=== PATIENT | female | born 1960 | race Hispanic/Latino ===

== ENCOUNTER 2017-04-15 06:29 | Day surgery (SDC) | payer MEDICARE ==
[2017-04-11 11:00] VITALS: BP 104/61
[2017-04-11 11:32] LABS: BASOPHILS % (AUTO) 1.2 % (0.0-5.0); EOSINOPHILS % (AUTO) 2.7 % (0.0-8.0); HEMATOCRIT 37.1 % (36-48); LYMPHOCYTES % (AUTO) 18.8 % (21.0-51.0); MEAN CORPUSCULAR HEMOGLOBIN 28.8 pg (27.0-33.0); MEAN CORPUSCULAR HGB CONC 32.3 g/dL (32.0-36.0); MONOCYTES % (AUTO) 12.3 % (3.0-13.0); NUCLEATED RED BLOOD CELLS 0.1 % (0.0-0.19); PLATELET COUNT (AUTO) 152 K/uL (130-400); RED BLOOD CELL COUNT(AUTO) 4.17 MIL/uL (4.00-5.50); WHITE BLOOD COUNT (AUTO) 6.8 K/uL (4.8-10.8)
[2017-04-11 11:41] LABS: CREATININE 4.6 mg/dL (0.5-1.5); POTASSIUM 4.9 mmol/L (3.5-5.1)
[2017-04-11 12:24] LABS: INR 2.49 (0.85-1.15); PARTIAL THROMBOPLASTIN TIME 32.2 SEC (26.3-35.5); PROTHROMBIN TIME 25.7 SEC (9.6-11.6)
[2017-04-15] VITALS (14 sets, daily range): BP systolic 96–166; BP diastolic 40–96
[~2017-04-15] VITALS: Ht 152.4 cm; Wt 85.7 kg
[~2017-04-15 06:29] MED LIST: AMIO200T2 PO; ASPI-1181 PO; ATOR10TA69 PO; CARV12.511 PO; FOLI1TAB85 PO; GLIP10TA9 PO; LOSA100T29 PO; NITR0.4T50 SL; OMEG-96 PO; PANT40TA25 PO; WARF5TAB8 PO
[2017-04-15] MEDS ORDERED: MIDAZOLAM HCL 1 MG/ML 2ML VIAL ONE ×2 (07:38→08:59)
[2017-04-15] MEDS ORDERED: FENTANYL CITRATE PF 50 MCG/1 ML 2ML VIAL ONE ×2 (07:39→08:59)
[2017-04-15] MEDS ORDERED: SODIUM CHLORIDE 0.9% 1000ML 1,000 ML IV ONE (07:50)
[2017-04-15] MEDS ORDERED: ONDANSETRON HCL 4 MG/2 ML VIAL ONE (12:15)
[2017-08-07] MEDS ORDERED: LOSA50TA37 PO (11:06)
[2017-08-07] MEDS ORDERED: WARF2.5T9 PO (11:06)
[2017-08-07] MEDS ORDERED: CALC667C10 PO (11:07)
== END 2017-04-15 14:20 | disposition home or self-care (01) ==
LOC: DAH 06:29
PROVIDERS: ATTEND Internal Medicine Cardiovascular Disease
DX: I48.0 Paroxysmal atrial fibrillation (principal); I47.1 Supraventricular tachycardia; I25.2 Old myocardial infarction; I25.10 Atherosclerotic heart disease of native coronary artery without angina pectoris; Z79.01 Long term (current) use of anticoagulants; Z79.899 Other long term (current) drug therapy; Z95.5 Presence of coronary angioplasty implant and graft; N18.6 End stage renal disease; Z99.2 Dependence on renal dialysis; E11.69 Type 2 diabetes mellitus with other specified complication; E78.5 Hyperlipidemia, unspecified; Z98.890 Other specified postprocedural states; Z95.1 Presence of aortocoronary bypass graft; D64.89 Other specified anemias; I48.92 Unspecified atrial flutter; I13.11 Hypertensive heart and chronic kidney disease without heart failure, with stage 5 chronic kidney disease, or end stage renal disease; E11.319 Type 2 diabetes mellitus with unspecified diabetic retinopathy without macular edema; I51.7 Cardiomegaly
CPT/HCPCS: 36415; 80048; 82948 ×2; 85025; 85610; 85730; 92960; 93005 ×2; A4606; J2250 ×2; J3010 ×2; J7030; J2405

== ENCOUNTER 2017-08-08 05:59 | Day surgery (SDC) | payer MEDICARE ==
[2017-08-07 10:44] VITALS: BP 98/52
[2017-08-07 10:57] LABS: BASOPHILS % (AUTO) 0.9 % (0.0-5.0); EOSINOPHILS % (AUTO) 3.6 % (0.0-8.0); HEMATOCRIT 31.5 % (36-48); LYMPHOCYTES % (AUTO) 22.7 % (21.0-51.0); MEAN CORPUSCULAR HGB CONC 33.1 g/dL (32.0-36.0); MEAN CORPUSCULAR VOLUME 96.8 fL (79-99); NEUTROPHILS % (AUTO) 60.8 % (40.0-77.0); NUCLEATED RED BLOOD CELLS 0.1 % (0.0-0.19); PLATELET COUNT (AUTO) 147 K/uL (130-400); RED BLOOD CELL COUNT(AUTO) 3.26 MIL/uL (4.00-5.50); RED CELL DISTRIBUTION WIDTH 18.8 % (11.0-15.5); WHITE BLOOD COUNT (AUTO) 8.1 K/uL (4.8-10.8)
[2017-08-07 11:07] LABS: POTASSIUM 5.4 mmol/L (3.5-5.1)
[2017-08-07 11:15] LABS: CREATININE 8.3 mg/dL (0.5-1.5)
[2017-08-07 11:38] LABS: INR 1.47 (0.85-1.15); PARTIAL THROMBOPLASTIN TIME 29.4 SEC (26.3-35.5); PROTHROMBIN TIME 15.3 SEC (9.6-11.6)
[~2017-08-08] VITALS: Ht 156.2 cm; Wt 90.4 kg
[~2017-08-08 05:59] MED LIST changes: -AMIO200T2 PO; +CALC667C10 PO; -LOSA100T29 PO; +LOSA50TA37 PO; +WARF2.5T9 PO
[2017-08-08 06:30] VITALS: BP 114/42
[2017-08-08 06:46] LABS: POTASSIUM 4.6 mmol/L (3.5-5.1)
[2017-08-08] MEDS ORDERED: SODIUM CHLORIDE 0.9% 1000ML 1,000 ML IV ONE (07:59)
[2017-08-08 11:41] VITALS: BP 103/54
== END 2017-08-08 16:15 | disposition home or self-care (01) ==
LOC: DAH 05:59 → 2BH 11:57 → DAH 16:15
PROVIDERS: ATTEND Internal Medicine Cardiovascular Disease
DX: I48.92 Unspecified atrial flutter (principal); Z53.9 Procedure and treatment not carried out, unspecified reason; I47.1 Supraventricular tachycardia; Z68.35 Body mass index [BMI] 35.0-35.9, adult; I25.10 Atherosclerotic heart disease of native coronary artery without angina pectoris; Z79.01 Long term (current) use of anticoagulants; I21.3 ST elevation (STEMI) myocardial infarction of unspecified site; I25.5 Ischemic cardiomyopathy; E78.5 Hyperlipidemia, unspecified; I13.2 Hypertensive heart and chronic kidney disease with heart failure and with stage 5 chronic kidney disease, or end stage renal disease; E11.22 Type 2 diabetes mellitus with diabetic chronic kidney disease; N18.6 End stage renal disease; I50.9 Heart failure, unspecified; Z99.2 Dependence on renal dialysis
CPT/HCPCS: 36415 ×2; 80048 ×2; 82948; 85025; 85610; 85730; A4606; J7030

== ENCOUNTER 2017-08-21 05:30 | Observation (INO) | payer MEDICARE ==
[2017-08-19 09:22] VITALS: BP 103/65
[2017-08-19 09:34] LABS: BASOPHILS % (AUTO) 0.8 % (0.0-5.0); EOSINOPHILS % (AUTO) 3.1 % (0.0-8.0); LYMPHOCYTES % (AUTO) 19.3 % (21.0-51.0); MEAN CORPUSCULAR HEMOGLOBIN 31.8 pg (27.0-33.0); MEAN CORPUSCULAR HGB CONC 32.7 g/dL (32.0-36.0); MEAN CORPUSCULAR VOLUME 97.1 fL (79-99); MONOCYTES % (AUTO) 7.6 % (3.0-13.0); NEUTROPHILS % (AUTO) 69.2 % (40.0-77.0); NUCLEATED RED BLOOD CELLS 0.1 % (0.0-0.19); PLATELET COUNT (AUTO) 149 K/uL (130-400); RED CELL DISTRIBUTION WIDTH 16.6 % (11.0-15.5); WHITE BLOOD COUNT (AUTO) 7.6 K/uL (4.8-10.8)
[2017-08-19 09:45] LABS: INR 1.71 (0.85-1.15); PARTIAL THROMBOPLASTIN TIME 30.1 SEC (26.3-35.5); PROTHROMBIN TIME 17.8 SEC (9.6-11.6)
[2017-08-19 09:46] LABS: POTASSIUM 5.8 mmol/L (3.5-5.1)
[2017-08-19 10:01] LABS: CREATININE 8.4 mg/dL (0.5-1.5)
[~2017-08-21] VITALS: Ht 152.4 cm; Wt 89.1 kg
[2017-08-21] VITALS (33 sets, daily range): BP systolic 104–158; BP diastolic 43–65
[~2017-08-21 05:30] MED LIST changes: -LOSA50TA37 PO
[2017-08-21] MEDS ORDERED: SODIUM CHLORIDE 0.9% 1000ML 1,000 ML IV ONE (06:18)
[2017-08-21] MEDS ORDERED: HEPARIN SODIUM 1000UNIT/ML 10ML VIAL ONE ×2 (07:19→09:14)
[2017-08-21] MEDS ORDERED: PROPOFOL 10 MG/ML 20ML VIAL IV ONE (07:21)
[2017-08-21] MEDS ORDERED: LIDOCAINE HCL 2% 20ML ONE (08:22)
[2017-08-21] MEDS ORDERED: ROCURONIUM BROMIDE 10MG/1ML 5ML VL ONE (08:41)
[2017-08-21] MEDS ORDERED: NOREPINEPHRINE BITARTRATE 1 MG/1 ML ML IV ONE (11:15)
[2017-08-21] MEDS ORDERED: GLYCOPYRROLATE 0.2 MG/ML 5 ML VIAL ONE (11:23)
[2017-08-21] MEDS ORDERED: NEOSTIGMINE METHYLSULFATE 1MG/ML IV ONE (11:23)
[2017-08-21] MEDS ORDERED: NITROGLYCERIN 0.4 MG SL TAB SL PRN (12:15)
[2017-08-21] MEDS ORDERED: ACETAMINOPHEN-CODEINE 300/30MG TAB PO PRN (12:15)
[2017-08-21] MEDS ORDERED: ACETAMINOPHEN 325 MG TAB PO PRN (12:15)
[2017-08-21] MEDS ORDERED: ONDANSETRON HCL 4 MG/2 ML VIAL ONE (12:30)
[2017-08-21] MEDS ORDERED: METOCLOPRAMIDE 10 MG/2 ML VIAL ONE (12:30)
[2017-08-21 13:15] LABS: CREATININE 6.7 mg/dL (0.5-1.5); POTASSIUM 5.7 mmol/L (3.5-5.1)
[2017-08-21] MEDS ORDERED: ALBUMIN (HUMAN) 25% 100 ML IV PRN (16:45)
[2017-08-21] MEDS ORDERED: HEPARIN SODIUM 5000UNIT/ML 1ML VIAL IJ PRN (16:45)
[2017-08-21] MEDS ORDERED: 0.9% SODIUM CHLORIDE 250 ML IV BAG IV PRN (16:45)
[2017-08-21] MEDS ORDERED: SODIUM CHLORIDE 0.9% 1000ML 1,000 ML IV PRN (16:45)
[2017-08-21] MEDS: CALCIUM ACETATE 667 MG CAPSULE PO SCH (17:00)
[2017-08-21] MEDS: CARVEDILOL 12.5 MG TABLET PO SCH (20:50)
[2017-08-21] MEDS: APIXABAN 5 MG TABLET PO SCH (20:51)
[2017-08-21] MEDS ORDERED: ATORVASTATIN CALCIUM 10 MG TABLET PO SCH (21:00)
[2017-08-21] MEDS ORDERED: WARFARIN SODIUM 2.5 MG TAB PO SCH (21:00)
[2017-08-22 04:00] VITALS: BP 97/51
[2017-08-22 05:53] LABS: BASOPHILS % (AUTO) 0.5 % (0.0-5.0); EOSINOPHILS % (AUTO) 0.8 % (0.0-8.0); HEMATOCRIT 29.8 % (36-48); LYMPHOCYTES % (AUTO) 11.6 % (21.0-51.0); MEAN CORPUSCULAR HEMOGLOBIN 32.8 pg (27.0-33.0); MEAN CORPUSCULAR HGB CONC 33.5 g/dL (32.0-36.0); MEAN CORPUSCULAR VOLUME 97.8 fL (79-99); MONOCYTES % (AUTO) 10.2 % (3.0-13.0); NEUTROPHILS % (AUTO) 76.9 % (40.0-77.0); PLATELET COUNT (AUTO) 148 K/uL (130-400); RED BLOOD CELL COUNT(AUTO) 3.04 MIL/uL (4.00-5.50); RED CELL DISTRIBUTION WIDTH 16.7 % (11.0-15.5); WHITE BLOOD COUNT (AUTO) 12.4 K/uL (4.8-10.8)
[2017-08-22 05:58] LABS: CREATININE 5.5 mg/dL (0.5-1.5); POTASSIUM 5.5 mmol/L (3.5-5.1)
[2017-08-22] MEDS: CALCIUM ACETATE 667 MG CAPSULE PO SCH ×2 (08:08→12:07)
[2017-08-22] MEDS: APIXABAN 5 MG TABLET PO SCH (08:09)
[2017-08-22] MEDS: CARVEDILOL 12.5 MG TABLET PO SCH (08:10)
[2017-08-22 08:54] VITALS: BP 102/45
[2017-08-22] MEDS ORDERED: ASPIRIN 81 MG EC TAB PO SCH (09:00)
[2017-08-22] MEDS ORDERED: PANTOPRAZOLE SODIUM 40 MG TABLET.DR PO SCH (09:00)
[2017-08-22] MEDS ORDERED: GLIPIZIDE 5 MG TABLET PO SCH (09:00)
[2017-08-22 11:53] VITALS: BP 101/48
[2017-08-22] MEDS ORDERED: APIX5TAB PO (12:04)
== END 2017-08-22 14:47 | disposition home or self-care (01) ==
LOC: DAH 05:30 → DAHIP 05:31 → DAH 05:31 → 4CH 14:52
PROVIDERS: ADMIT Family Medicine; ATTEND Family Medicine
DX: I48.91 Unspecified atrial fibrillation (principal); I48.92 Unspecified atrial flutter; I25.10 Atherosclerotic heart disease of native coronary artery without angina pectoris; I12.0 Hypertensive chronic kidney disease with stage 5 chronic kidney disease or end stage renal disease; N18.6 End stage renal disease; Z99.2 Dependence on renal dialysis; E11.22 Type 2 diabetes mellitus with diabetic chronic kidney disease; E11.21 Type 2 diabetes mellitus with diabetic nephropathy; D64.9 Anemia, unspecified; E78.5 Hyperlipidemia, unspecified; E87.5 Hyperkalemia; I25.5 Ischemic cardiomyopathy; Z83.3 Family history of diabetes mellitus; Z95.1 Presence of aortocoronary bypass graft; Z95.5 Presence of coronary angioplasty implant and graft
CPT/HCPCS: 36415 ×3; 80048 ×3; 82948 ×6; 84100; 84132; 85025 ×2; 85610; 85730; 93005 ×2; 93613; 93621; 93653; 93655; A4344; A4649; C1730 ×2; C1731; C1732; C1893 ×2; C1894 ×4; G0257; G0378 ×33; J1644 ×3; J2405; J2704; J2710; J2765; J3490 ×4; J7030 ×2; 90935

== ENCOUNTER 2018-02-13 15:58 | Emergency (ER) | payer MEDICARE ==
[~2018-02-13 15:58] MED LIST changes: +APIX5TAB PO; -WARF2.5T9 PO; -WARF5TAB8 PO
== END 2018-02-13 18:09 | disposition left against medical advice (07) ==
LOC: EDH 15:58
DX: E11.65 Type 2 diabetes mellitus with hyperglycemia (principal); E78.5 Hyperlipidemia, unspecified; I10 Essential (primary) hypertension; I25.810 Atherosclerosis of coronary artery bypass graft(s) without angina pectoris; Z88.1 Allergy status to other antibiotic agents
CPT/HCPCS: 82948

== ENCOUNTER 2018-02-16 07:28 | Day surgery (SDC) | payer MEDICARE ==
[2018-02-13 14:01] VITALS: BP 121/68
[2018-02-13 14:22] LABS: BASOPHILS % (AUTO) 0.9 % (0.0-5.0); EOSINOPHILS % (AUTO) 2.6 % (0.0-8.0); LYMPHOCYTES % (AUTO) 19.6 % (21.0-51.0); MEAN CORPUSCULAR HEMOGLOBIN 30.8 pg (27.0-33.0); MEAN CORPUSCULAR HGB CONC 32.1 g/dL (32.0-36.0); MONOCYTES % (AUTO) 10.9 % (3.0-13.0); PLATELET COUNT (AUTO) 126 K/uL (130-400); RED BLOOD CELL COUNT(AUTO) 3.54 MIL/uL (4.00-5.50); RED CELL DISTRIBUTION WIDTH 15.6 % (11.0-15.5); WHITE BLOOD COUNT (AUTO) 7.1 K/uL (4.8-10.8)
[2018-02-13 14:39] LABS: CREATININE 5.7 mg/dL (0.5-1.5); POTASSIUM 4.5 mmol/L (3.5-5.1)
[2018-02-16] VITALS (13 sets, daily range): BP systolic 109–160; BP diastolic 30–84
[~2018-02-16] VITALS: Ht 154.9 cm; Wt 91.9 kg
[~2018-02-16 07:28] MED LIST changes: -CALC667C10 PO; +LIDOCAINE PF 2% 5ML ABBOJECT ONE; -NITR0.4T50 SL; +PROPOFOL 10 MG/ML 20ML VIAL IV ONE
[2018-02-16] MEDS ORDERED: AMIO200T5 PO (08:31)
[2018-02-16] MEDS ORDERED: APIX2.5T PO (10:39)
== END 2018-02-16 11:00 | disposition home or self-care (01) ==
LOC: DAH 07:28 → EDSTATUS 11:30 → PREINTOOBSV 13:00 → PREOBSVTOIN 13:00
PROVIDERS: ATTEND Internal Medicine Cardiovascular Disease
DX: I47.1 Supraventricular tachycardia (principal); I48.92 Unspecified atrial flutter; I48.0 Paroxysmal atrial fibrillation; Z98.890 Other specified postprocedural states; Z79.899 Other long term (current) drug therapy; Z79.01 Long term (current) use of anticoagulants; R06.02 Shortness of breath; E66.01 Morbid (severe) obesity due to excess calories; I25.10 Atherosclerotic heart disease of native coronary artery without angina pectoris; Z95.1 Presence of aortocoronary bypass graft; E11.22 Type 2 diabetes mellitus with diabetic chronic kidney disease; N18.6 End stage renal disease; E78.5 Hyperlipidemia, unspecified; I25.5 Ischemic cardiomyopathy; I13.11 Hypertensive heart and chronic kidney disease without heart failure, with stage 5 chronic kidney disease, or end stage renal disease; Z99.2 Dependence on renal dialysis; E11.59 Type 2 diabetes mellitus with other circulatory complications; E11.319 Type 2 diabetes mellitus with unspecified diabetic retinopathy without macular edema; Z90.49 Acquired absence of other specified parts of digestive tract; Z68.37 Body mass index [BMI] 37.0-37.9, adult
CPT/HCPCS: 36415; 80048; 82948; 85025; 92960; 93005 ×2; A4606; J2001; J2704

== ENCOUNTER 2019-05-28 08:00 | Day surgery (SDC) | payer MEDICARE ==
[2019-05-26 09:56] VITALS: BP 106/58
[2019-05-26 09:58] LABS: BASOPHILS % (AUTO) 1.2 % (0.0-5.0); HEMATOCRIT 36.6 % (36-48); LYMPHOCYTES % (AUTO) 15.9 % (21.0-51.0); MEAN CORPUSCULAR HEMOGLOBIN 31.4 pg (27.0-33.0); MEAN CORPUSCULAR HGB CONC 30.6 g/dL (32.0-36.0); MEAN CORPUSCULAR VOLUME 102.5 fL (79-99); MONOCYTES % (AUTO) 8.5 % (3.0-13.0); NEUTROPHILS % (AUTO) 70.5 % (40.0-77.0); PLATELET COUNT (AUTO) 139 K/uL (130-400); RED BLOOD CELL COUNT(AUTO) 3.57 MIL/uL (4.00-5.50); RED CELL DISTRIBUTION WIDTH 15.2 % (11.0-15.5); WHITE BLOOD COUNT (AUTO) 8.4 K/uL (4.8-10.8)
[2019-05-26 10:07] LABS: CREATININE 5.4 mg/dL (0.5-1.5); POTASSIUM 4.7 mmol/L (3.5-5.1)
--- NOTE | 2019-05-27 11:43 | NUR ---
PER PEDRO GIANG AND DR GONZALEZ ABNORMAL CREAT AND BUN OK TO PROCEED WITH PROCEDURE, PT ON DIALYSIS.
[2019-05-28] VITALS (10 sets, daily range): BP systolic 118–174; BP diastolic 32–74
[~2019-05-28] VITALS: Ht 152.4 cm; Wt 93.1 kg
[~2019-05-28 08:00] MED LIST changes: +AMIO200T5 PO; +DRAMAMINE PO; -LIDOCAINE PF 2% 5ML ABBOJECT ONE; +LOSA50TA64 PO; +NITR0.4T50 SL; -PROPOFOL 10 MG/ML 20ML VIAL IV ONE; +SODIUM CHLORIDE 0.9% 1000ML 1,000 ML IV SCH
--- NOTE | 2019-05-28 10:42 | NUR ---
SPOKE WITH EPI DIALYSIS NURSE WILL COME TO ACCESS PERMCATH IN ABOUT A HOUR
[2019-05-28] MEDS ORDERED: HEPARIN SODIUM 5000UNIT/ML 1ML VIAL SQ SCH (12:15)
[2019-05-28] MEDS ORDERED: PROPOFOL 10 MG/ML 20ML VIAL IV ONE (12:23)
--- NOTE | 2019-05-28 12:25 | NUR ---
RITA SMART RN LEFT AT 1233 OUT THE ROOM. START TIME 1225 SHOCK TIMEX 1 100 JOULS CONVERTED @ 1228 FINISHED PROCEDURE @ 1230 RECOVERY STARTED @ 1230 PATIENT TOLERATED WELL WITH NO DISCOMFORTS. PT CONVERTED, VS STABLE, BOTH DR. NARVAEZ AND DR. LEE OUT OF THE ROOM AT 1236. NO FAMILY WAS PRESENT AFTER PROCEDURE WAS DONE, ONLY HER PROVIDER. PATIENT WILL BE DISCHARGED WHEN FULLY AWAKE.
--- NOTE | 2019-05-28 12:25 | NUR ---
TIME OUT DONE PT PERSON IN ROOM IS RITA SMART DIALYSIS NURSE, DR. REYNOSO, DR. CARMEN NARVAEZ.
--- NOTE | 2019-05-28 12:30 | NUR ---
RITA SMART RN/DIALYSIS NURSE, GAVE 5,000 UNITS OF HEPARIN THRU BLUE PORT IN [facility].
--- NOTE | 2019-05-28 13:15 | NUR ---
PT LEFT VIA WHEEL CHAIR IN PVT CAR, WITH D/C INSTRUCTIONS GIVEN TO PATIENT PROVIDER ALONG WITH F/U APPT. V/S STABLE AND NO COMPLICATIONS UPON D/C
== END 2019-05-28 13:15 | disposition home or self-care (01) ==
LOC: DAH 08:00
PROVIDERS: ATTEND Internal Medicine Cardiovascular Disease
DX: I47.1 Supraventricular tachycardia (principal); I48.91 Unspecified atrial fibrillation; I13.0 Hypertensive heart and chronic kidney disease with heart failure and stage 1 through stage 4 chronic kidney disease, or unspecified chronic kidney disease; E11.22 Type 2 diabetes mellitus with diabetic chronic kidney disease; N18.6 End stage renal disease; I25.5 Ischemic cardiomyopathy; K21.9 Gastro-esophageal reflux disease without esophagitis; E78.5 Hyperlipidemia, unspecified; F32.9 Major depressive disorder, single episode, unspecified; Z79.82 Long term (current) use of aspirin; Z79.899 Other long term (current) drug therapy; Z79.2 Long term (current) use of antibiotics; Z95.5 Presence of coronary angioplasty implant and graft; Z99.2 Dependence on renal dialysis; Z88.8 Allergy status to other drugs, medicaments and biological substances; Z82.49 Family history of ischemic heart disease and other diseases of the circulatory system
CPT/HCPCS: 36415; 80048; 82948; 85025; 92960; 93005 ×2; A4215; A4216; A4221; A4222; A4223 ×3; A4606; A4663; J1644; J2704; J7030; 99152

== ENCOUNTER 2020-02-01 11:16 | Inpatient (IN) | payer MEDICARE ==
[~2020-02-01] VITALS: Ht 157.5 cm; Wt 86.4 kg
[~2020-02-01 11:16] MED LIST changes: -AMIO200T5 PO; +AMIO200T6 PO; -ASPI-1181 PO; +ASPI-1443 PO; -DRAMAMINE PO; -PANT40TA25 PO; +PANT40TA54 PO; -SODIUM CHLORIDE 0.9% 1000ML 1,000 ML IV SCH
[2020-02-01 11:44] LABS: BASOPHILS % (AUTO) 0.8 % (0.0-5.0); EOSINOPHILS % (AUTO) 3.7 % (0.0-8.0); HEMATOCRIT 33.7 % (36-48); LYMPHOCYTES % (AUTO) 22.7 % (21.0-51.0); MEAN CORPUSCULAR HEMOGLOBIN 30.7 pg (27.0-33.0); MEAN CORPUSCULAR HGB CONC 31.8 g/dL (32.0-36.0); MEAN CORPUSCULAR VOLUME 96.8 fL (79-99); MONOCYTES % (AUTO) 10.4 % (3.0-13.0); NEUTROPHILS % (AUTO) 61.6 % (40.0-77.0); PLATELET COUNT (AUTO) 138 K/uL (130-400); RED BLOOD CELL COUNT(AUTO) 3.48 MIL/uL (4.00-5.50); RED CELL DISTRIBUTION WIDTH 16.2 % (11.0-15.5); WHITE BLOOD COUNT (AUTO) 7.9 K/uL (4.8-10.8)
[2020-02-01 12:30] LABS: ALBUMIN 2.7 g/dL (3.5-5.0); BILIRUBIN,TOTAL 0.5 mg/dL (0.2-1.0); CREATININE 3.3 mg/dL (0.5-1.5); POTASSIUM 4.9 mmol/L (3.5-5.1); TOTAL PROTEIN, SERUM 6.8 g/dL (6.0-8.3)
[2020-02-01] MEDS: ZOSYN 3.375GM+NS 50ML 50 ML IV SCH (17:00)
[2020-02-01] MEDS ORDERED: VANCOMYCIN 1.5 GM in SODIUM CHLORIDE 0.9% 250 ML IV SCH (17:00)
[2020-02-01] MEDS ORDERED: COMPOUND IV REFRIGERATED 1 EACH IVSOLN MISC PRN (17:00)
[2020-02-01] MEDS ORDERED: ZOSYN 3.375GM+NS 50ML 50 ML IV ONE (18:09)
[2020-02-01] MEDS: INSULIN R PO SS1 SQ SCH (21:00)
[2020-02-02] VITALS (8 sets, daily range): BP systolic 109–196; BP diastolic 33–61
--- NOTE | 2020-02-02 00:05 | NUR ---
patient alert and oriented times 3. she came from the ER. she has nausea and 1 emesis when she arrived. i gave her zofran. her sugar was 72, so i gave her an orange juice. I input her home medications and pending to be reconciled. ER said she did not give the vancomycin antibiotic in the ER because the patient claims she received antibiotic in the dialysis center in dr. rose's office before coming to the hospital. I took pictures of her wounds in both feet and cleaned them with betadine, vaseline gauze, applied dry gauze and kerlex as well on both feet. I also applied her purple soft booties back as per dr. allison's order. no further issues.
[2020-02-02] MEDS: ONDANSETRON HCL 4 MG/2 ML VIAL IVP PRN ×2 (00:18→19:58)
[2020-02-02] MEDS ORDERED: GLIP10TA9 PO (01:24)
[2020-02-02] MEDS ORDERED: AMLO-257 PO (01:24)
[2020-02-02] MEDS ORDERED: CARV6.25 PO (01:24)
[2020-02-02] MEDS ORDERED: LOSA25TA41 PO (01:24)
[2020-02-02] MEDS: ZOSYN 3.375GM+NS 50ML 50 ML IV SCH ×2 (03:51→17:32)
[2020-02-02] MEDS: INSULIN R PO SS1 SQ SCH ×4 (06:44→19:51)
[2020-02-02 07:03] LABS: HEMATOCRIT 30.9 % (36-48); MEAN CORPUSCULAR HEMOGLOBIN 30.3 pg (27.0-33.0); MEAN CORPUSCULAR HGB CONC 31.1 g/dL (32.0-36.0); MEAN CORPUSCULAR VOLUME 97.5 fL (79-99); RED BLOOD CELL COUNT(AUTO) 3.17 MIL/uL (4.00-5.50); RED CELL DISTRIBUTION WIDTH 16.1 % (11.0-15.5); WHITE BLOOD COUNT (AUTO) 9.1 K/uL (4.8-10.8)
[2020-02-02 07:12] LABS: CREATININE 4.7 mg/dL (0.5-1.5); PHOSPHORUS 3.3 mg/dL (2.5-4.9); POTASSIUM 4.2 mmol/L (3.5-5.1)
[2020-02-02] MEDS: PANTOPRAZOLE SODIUM 40 MG TABLET.DR PO SCH (10:31)
[2020-02-02] MEDS ORDERED: LOSARTAN 50 MG TABLET PO SCH (13:08)
[2020-02-02] MEDS: AMLODIPINE BESYLATE 5 MG TAB PO SCH (14:00)
[2020-02-02] MEDS ORDERED: NON-FORMULARY MEDICATION 1 EACH (Losartan Potassium 25 MG) PO SCH (14:00)
[2020-02-02] MEDS ORDERED: TETANUS/DIPHTHERIA TOXOID [ADULT] 0.5 ML VIAL IM SCH (14:00)
--- NOTE | 2020-02-02 14:09 | NUR ---
DCP CM met with pt currently not in room, called daughter on facesheet, spoke to Cally Tolentino discussed dc plans. Per daughter pt is mostly independent prior to admission, lives at home with spouse, daughter lives close by. Pt has a provider Mon-Fri 5hrs/day, rollator walker, wheelchair, hospital bed, HH 3X/wk but unable to recall company name, goes to [facility] Ruben NIKOS @ 5AM. Daughter verbalized pt uses med transport as necessary to dialysis and MD visits. Denies any other equipments/services. Feels safe to go back home, daughter able to assist with transportation and needs as necessary. Been to [facility] before, prefers to go home as much as possible. DC plan to home continue current HH vs SNF. CM to continue to follow up. Addendum: 02/02/20 at 1414 by NICOLE FUNEZ LVN CM Amended: Links added.
--- NOTE | 2020-02-02 15:45 | NUR ---
1511 patient signed IM Letter, I faxed IM Letter to [phone] and placed in chart under consent tab.
[2020-02-02] MEDS: ACETAMINOPHEN 325 MG TAB PO PRN (19:59)
[2020-02-02] MEDS: ATORVASTATIN CALCIUM 10 MG TABLET PO SCH (20:00)
[2020-02-02] MEDS: CARVEDILOL 6.25 MG TABLET PO SCH (21:59)
[2020-02-03 03:45] VITALS: BP_SYST 143; BP_SYST 147; BP_DIAS 32; BP_DIAS 37
[2020-02-03] MEDS: ZOSYN 3.375GM+NS 50ML 50 ML IV SCH ×2 (05:25→17:09)
[2020-02-03 05:30] LABS: BASOPHILS % (AUTO) 0.8 % (0.0-5.0); EOSINOPHILS % (AUTO) 3.7 % (0.0-8.0); HEMATOCRIT 32.9 % (36-48); LYMPHOCYTES % (AUTO) 21.7 % (21.0-51.0); MEAN CORPUSCULAR HEMOGLOBIN 30.9 pg (27.0-33.0); MEAN CORPUSCULAR HGB CONC 31.3 g/dL (32.0-36.0); MEAN CORPUSCULAR VOLUME 98.8 fL (79-99); MONOCYTES % (AUTO) 10.5 % (3.0-13.0); NEUTROPHILS % (AUTO) 62.3 % (40.0-77.0); PLATELET COUNT (AUTO) 131 K/uL (130-400); RED BLOOD CELL COUNT(AUTO) 3.33 MIL/uL (4.00-5.50); RED CELL DISTRIBUTION WIDTH 16.1 % (11.0-15.5); WHITE BLOOD COUNT (AUTO) 7.2 K/uL (4.8-10.8)
[2020-02-03 06:00] LABS: ALBUMIN 2.7 g/dL (3.5-5.0); BILIRUBIN,TOTAL 0.4 mg/dL (0.2-1.0); PHOSPHORUS 4.2 mg/dL (2.5-4.9); POTASSIUM 4.5 mmol/L (3.5-5.1); TOTAL PROTEIN, SERUM 6.5 g/dL (6.0-8.3)
[2020-02-03] MEDS: INSULIN R PO SS1 SQ SCH ×4 (06:16→20:08)
[2020-02-03 08:00] VITALS: BP 177/46
[2020-02-03] MEDS: AMLODIPINE BESYLATE 5 MG TAB PO SCH (09:00)
[2020-02-03] MEDS: CARVEDILOL 6.25 MG TABLET PO SCH ×2 (09:00→21:00)
[2020-02-03] MEDS ORDERED: AMLODIPINE BESYLATE 5 MG TAB PO SCH (09:00)
[2020-02-03] MEDS ORDERED: NON-FORMULARY MEDICATION 1 EACH (Losartan Potassium 25 MG) PO SCH (09:00)
[2020-02-03] MEDS: PANTOPRAZOLE SODIUM 40 MG TABLET.DR PO SCH (09:00)
[2020-02-03] MEDS: ASPIRIN 81MG TAB.CHEW PO SCH (09:30)
[2020-02-03] MEDS: APIXABAN 2.5 MG TABLET PO SCH ×2 (09:30→21:29)
[2020-02-03] MEDS: AMIODARONE HCL 200 MG TABLET PO SCH (09:30)
[2020-02-03] MEDS ORDERED: 0.9% SODIUM CHLORIDE 1000 ML IV BAG IV PRN (10:15)
[2020-02-03] MEDS ORDERED: HEPARIN SODIUM 5000UNIT/ML 1ML VIAL IJ PRN (10:15)
[2020-02-03] MEDS ORDERED: NITROGLYCERIN 0.4 MG SL TAB SL PRN (10:15)
[2020-02-03] MEDS ORDERED: PHARMACY COMMUNICATION MISC PRN (10:15)
[2020-02-03] MEDS ORDERED: ACETAMINOPHEN 325 MG TAB PO PRN (10:15)
[2020-02-03] MEDS ORDERED: SODIUM CHLORIDE 0.9% 1000ML 1,000 ML IV PRN (10:15)
[2020-02-03] MEDS ORDERED: LIDOCAINE HCL-MPF 1% 2ML VIAL IJ PRN (10:15)
[2020-02-03 11:00] VITALS: BP 147/62
[2020-02-03 16:00] VITALS: BP 153/47
[2020-02-03 20:24] VITALS: BP 147/41
[2020-02-03] MEDS ORDERED: VANCOMYCIN 1.5 GM in SODIUM CHLORIDE 0.9% 250 ML IV SCH (21:00)
[2020-02-03] MEDS: ATORVASTATIN CALCIUM 10 MG TABLET PO SCH (21:29)
[2020-02-03] MEDS: PHARMACY COMMUNICATION MISC SCH ×2 (21:45→23:45)
[2020-02-03 23:34] VITALS: BP 143/38
[2020-02-04 03:55] VITALS: BP 153/38
[2020-02-04] MEDS: PHARMACY COMMUNICATION MISC SCH (04:08)
[2020-02-04] MEDS: ZOSYN 3.375GM+NS 50ML 50 ML IV SCH ×2 (04:08→17:10)
[2020-02-04 05:15] LABS: BASOPHILS % (AUTO) 1.3 % (0.0-5.0); EOSINOPHILS % (AUTO) 4.6 % (0.0-8.0); HEMATOCRIT 33.7 % (36-48); LYMPHOCYTES % (AUTO) 23.2 % (21.0-51.0); MEAN CORPUSCULAR HGB CONC 30.9 g/dL (32.0-36.0); MEAN CORPUSCULAR VOLUME 97.1 fL (79-99); MONOCYTES % (AUTO) 12.4 % (3.0-13.0); NEUTROPHILS % (AUTO) 57.7 % (40.0-77.0); PLATELET COUNT (AUTO) 145 K/uL (130-400); RED BLOOD CELL COUNT(AUTO) 3.47 MIL/uL (4.00-5.50); RED CELL DISTRIBUTION WIDTH 16.1 % (11.0-15.5); WHITE BLOOD COUNT (AUTO) 7.8 K/uL (4.8-10.8)
[2020-02-04 05:28] LABS: CREATININE 4.4 mg/dL (0.5-1.5); POTASSIUM 3.7 mmol/L (3.5-5.1)
[2020-02-04] MEDS: INSULIN R PO SS1 SQ SCH ×4 (06:45→20:03)
[2020-02-04 07:16] LABS: HEPATITIS A ANTIBODY IGM Negative (Negative); HEPATITIS B CORE IGM Negative (Negative); HEPATITIS Bs ANTIGEN SCREEN P Negative (Negative)
[2020-02-04 07:16] LABS: HEPATITIS Bs ANTIGEN SCREEN P Negative (Negative)
[2020-02-04 08:00] VITALS: BP 168/96
[2020-02-04] MEDS: APIXABAN 2.5 MG TABLET PO SCH (10:23)
[2020-02-04] MEDS: ASPIRIN 81MG TAB.CHEW PO SCH (10:23)
[2020-02-04] MEDS: LOSARTAN 50 MG TABLET PO SCH (10:24)
[2020-02-04] MEDS: AMIODARONE HCL 200 MG TABLET PO SCH (10:24)
[2020-02-04] MEDS: CARVEDILOL 6.25 MG TABLET PO SCH ×2 (10:24→20:04)
[2020-02-04] MEDS: PANTOPRAZOLE SODIUM 40 MG TABLET.DR PO SCH (10:24)
[2020-02-04] MEDS: AMLODIPINE BESYLATE 5 MG TAB PO SCH (10:24)
[2020-02-04 12:00] VITALS: BP 175/42
[2020-02-04 16:00] VITALS: BP 140/35
[2020-02-04 21:07] VITALS: BP 151/34
[2020-02-04] MEDS: ATORVASTATIN CALCIUM 10 MG TABLET PO SCH (21:32)
[2020-02-04] MEDS: ACETAMINOPHEN 325 MG TAB PO PRN (21:34)
[2020-02-05 00:26] VITALS: BP 129/38
[2020-02-05 04:07] VITALS: BP 149/41
[2020-02-05] MEDS: ZOSYN 3.375GM+NS 50ML 50 ML IV SCH ×2 (04:31→17:10)
[2020-02-05] MEDS: INSULIN R PO SS1 SQ SCH ×4 (05:38→21:00)
[2020-02-05 08:00] VITALS: BP 161/68
[2020-02-05 08:06] LABS: HEMATOCRIT 32.5 % (36-48); LYMPHOCYTES % (AUTO) 26.3 % (21.0-51.0); MEAN CORPUSCULAR HEMOGLOBIN 30.4 pg (27.0-33.0); MEAN CORPUSCULAR HGB CONC 31.1 g/dL (32.0-36.0); MEAN CORPUSCULAR VOLUME 97.9 fL (79-99); MONOCYTES % (AUTO) 11.2 % (3.0-13.0); NEUTROPHILS % (AUTO) 56.6 % (40.0-77.0); PLATELET COUNT (AUTO) 147 K/uL (130-400); RED BLOOD CELL COUNT(AUTO) 3.32 MIL/uL (4.00-5.50); RED CELL DISTRIBUTION WIDTH 16.7 % (11.0-15.5); WHITE BLOOD COUNT (AUTO) 7.8 K/uL (4.8-10.8)
[2020-02-05 08:27] LABS: CREATININE 6.2 mg/dL (0.5-1.5); POTASSIUM 4.4 mmol/L (3.5-5.1)
[2020-02-05] MEDS: ASPIRIN 81MG TAB.CHEW PO SCH (11:44)
[2020-02-05] MEDS: LOSARTAN 50 MG TABLET PO SCH (11:45)
[2020-02-05] MEDS: AMLODIPINE BESYLATE 5 MG TAB PO SCH (11:45)
[2020-02-05] MEDS: PANTOPRAZOLE SODIUM 40 MG TABLET.DR PO SCH (11:45)
[2020-02-05] MEDS: CARVEDILOL 6.25 MG TABLET PO SCH ×2 (11:46→20:26)
[2020-02-05] MEDS: AMIODARONE HCL 200 MG TABLET PO SCH (11:46)
[2020-02-05 12:00] VITALS: BP 130/35
[2020-02-05] MEDS: VANCOMYCIN 0.75 GM in SODIUM CHLORIDE 0.9% 250 ML IV SCH (13:05)
[2020-02-05] MEDS: ACETAMINOPHEN 325 MG TAB PO PRN (14:44)
[2020-02-05] MEDS: HEPARIN SODIUM 5000UNIT/ML 1ML VIAL SQ SCH (14:48)
[2020-02-05 16:00] VITALS: BP 156/34
[2020-02-05] MEDS ORDERED: FISH OIL 1000 MG/CAP ONE (18:45)
[2020-02-05] MEDS: FISH OIL 1000 MG/CAP PO SCH (20:23)
[2020-02-05] MEDS: ATORVASTATIN CALCIUM 10 MG TABLET PO SCH (20:24)
[2020-02-05 20:47] VITALS: BP 129/39
[2020-02-05] MEDS ORDERED: DHA PO SCH (21:00)
[2020-02-05] MEDS ORDERED: EPA PO SCH (21:00)
[2020-02-05] MEDS ORDERED: [UNRECOGNIZED DRUG - OTHER] PO SCH (21:00)
[2020-02-05] MEDS ORDERED: OMEGA PO SCH (21:00)
[2020-02-05] MEDS ORDERED: FISH OIL PO SCH (21:00)
[2020-02-06] MEDS: HEPARIN SODIUM 5000UNIT/ML 1ML VIAL SQ SCH ×3 (00:28→23:49)
[2020-02-06 04:10] VITALS: BP 140/29
[2020-02-06] MEDS: ZOSYN 3.375GM+NS 50ML 50 ML IV SCH ×2 (04:37→16:44)
[2020-02-06] MEDS: ONDANSETRON HCL 4 MG/2 ML VIAL IVP PRN (05:43)
[2020-02-06] MEDS: INSULIN R PO SS1 SQ SCH ×4 (06:42→20:25)
[2020-02-06] MEDS: PHARMACY COMMUNICATION MISC SCH ×10 (07:45→23:49)
[2020-02-06 08:00] VITALS: BP 169/23
[2020-02-06] MEDS ORDERED: NON-FORMULARY MEDICATION 1 EACH (Vit B Cmplx 3/FA/Vit C/Biotin (Rena-Vite Rx Tablet) 1 EAC PO SCH (09:00)
[2020-02-06] MEDS: ASPIRIN 81MG TAB.CHEW PO SCH (09:34)
[2020-02-06] MEDS: AMLODIPINE BESYLATE 5 MG TAB PO SCH (09:35)
[2020-02-06] MEDS: PANTOPRAZOLE SODIUM 40 MG TABLET.DR PO SCH (09:35)
[2020-02-06] MEDS: AMIODARONE HCL 200 MG TABLET PO SCH (09:35)
[2020-02-06] MEDS: CARVEDILOL 6.25 MG TABLET PO SCH ×2 (09:35→19:40)
[2020-02-06] MEDS: LOSARTAN 50 MG TABLET PO SCH (09:37)
[2020-02-06] MEDS: Vitamin B Complex/Vit C/Folic Acid PO SCH (10:09)
[2020-02-06 12:00] VITALS: BP 133/78
[2020-02-06 16:00] VITALS: BP 141/48
[2020-02-06] MEDS: FISH OIL 1000 MG/CAP PO SCH (19:40)
[2020-02-06] MEDS: ATORVASTATIN CALCIUM 10 MG TABLET PO SCH (19:40)
[2020-02-06] MEDS: HYDROMORPHONE 1 MG/1 ML AMP IVP PRN ×3 (19:55→23:03)
[2020-02-06 20:28] VITALS: BP 124/71
[2020-02-07] VITALS (13 sets, daily range): BP systolic 118–163; BP diastolic 34–72
[2020-02-07] MEDS: HYDROMORPHONE 1 MG/1 ML AMP IVP PRN ×2 (01:02→05:02)
[2020-02-07] MEDS: ZOSYN 3.375GM+NS 50ML 50 ML IV SCH ×2 (05:02→17:00)
[2020-02-07] MEDS ORDERED: HYDROMORPHONE 1 MG/1 ML AMP IVP PRN (05:15)
[2020-02-07] MEDS: INSULIN R PO SS1 SQ SCH ×4 (05:55→21:00)
[2020-02-07 06:03] LABS: MEAN CORPUSCULAR HEMOGLOBIN 31.1 pg (27.0-33.0); MEAN CORPUSCULAR HGB CONC 31.7 g/dL (32.0-36.0); RED BLOOD CELL COUNT(AUTO) 3.57 MIL/uL (4.00-5.50); RED CELL DISTRIBUTION WIDTH 16.8 % (11.0-15.5); WHITE BLOOD COUNT (AUTO) 8.4 K/uL (4.8-10.8)
[2020-02-07 06:27] LABS: INR 0.99 (0.85-1.15); PARTIAL THROMBOPLASTIN TIME 25.2 SEC (26.3-35.5); PROTHROMBIN TIME 10.7 SEC (9.6-11.6)
[2020-02-07 06:31] LABS: CREATININE 5.8 mg/dL (0.5-1.5); PHOSPHORUS 4.9 mg/dL (2.5-4.9); POTASSIUM 4.2 mmol/L (3.5-5.1)
[2020-02-07] MEDS: PHARMACY COMMUNICATION MISC SCH ×10 (07:45→22:38)
[2020-02-07] MEDS: AMIODARONE HCL 200 MG TABLET PO SCH (09:00)
[2020-02-07] MEDS: LOSARTAN 50 MG TABLET PO SCH (09:00)
[2020-02-07] MEDS: PANTOPRAZOLE SODIUM 40 MG TABLET.DR PO SCH (09:00)
[2020-02-07] MEDS: Vitamin B Complex/Vit C/Folic Acid PO SCH (09:00)
[2020-02-07] MEDS: ASPIRIN 81MG TAB.CHEW PO SCH (09:00)
[2020-02-07] MEDS: CARVEDILOL 6.25 MG TABLET PO SCH ×2 (09:00→21:06)
[2020-02-07] MEDS: AMLODIPINE BESYLATE 5 MG TAB PO SCH (09:00)
[2020-02-07] MEDS: HEPARIN SODIUM 5000UNIT/ML 1ML VIAL SQ SCH (11:28)
[2020-02-07] MEDS: HEPARIN SODIUM 5000UNIT/ML 1ML VIAL IJ PRN (11:37)
[2020-02-07] MEDS: VANCOMYCIN 0.75 GM in SODIUM CHLORIDE 0.9% 250 ML IV SCH (15:04)
[2020-02-07] MEDS ORDERED: NICARDIPINE HCL 25 MG/10 ML ML IV ONE (16:14)
[2020-02-07] MEDS ORDERED: HEPARIN SODIUM 1000UNIT/ML 10ML VIAL ONE (16:14)
[2020-02-07] MEDS ORDERED: IODIXANOL 320 MG/ML 100 ML VIAL ONE (16:15)
[2020-02-07] MEDS ORDERED: FENTANYL CITRATE PF 50 MCG/1 ML 2ML VIAL ONE (16:15)
[2020-02-07] MEDS ORDERED: MIDAZOLAM HCL 1 MG/ML 2ML VIAL ONE (16:15)
[2020-02-07] MEDS ORDERED: NITROGLYCERIN 2 MG/VIAL VIAL IV ONE (16:15)
[2020-02-07] MEDS ORDERED: LIDOCAINE HCL 2% 20ML ONE (16:15)
[2020-02-07] MEDS: ATORVASTATIN CALCIUM 10 MG TABLET PO SCH (21:05)
[2020-02-07] MEDS: FISH OIL 1000 MG/CAP PO SCH (21:06)
[2020-02-08] VITALS (19 sets, daily range): BP systolic 121–162; BP diastolic 28–67
[2020-02-08] MEDS: HEPARIN SODIUM 5000UNIT/ML 1ML VIAL SQ SCH ×2 (00:29→13:15)
[2020-02-08] MEDS: ZOSYN 3.375GM+NS 50ML 50 ML IV SCH ×3 (04:39→17:00)
[2020-02-08] MEDS: INSULIN R PO SS1 SQ SCH ×4 (05:31→19:38)
[2020-02-08] MEDS: PHARMACY COMMUNICATION MISC SCH (07:45)
[2020-02-08] MEDS: PANTOPRAZOLE SODIUM 40 MG TABLET.DR PO SCH (09:00)
[2020-02-08] MEDS: Vitamin B Complex/Vit C/Folic Acid PO SCH (09:00)
[2020-02-08] MEDS: ASPIRIN 81MG TAB.CHEW PO SCH (09:00)
[2020-02-08] MEDS: LOSARTAN 50 MG TABLET PO SCH (09:32)
[2020-02-08] MEDS: CARVEDILOL 6.25 MG TABLET PO SCH ×2 (09:32→20:04)
[2020-02-08] MEDS: AMLODIPINE BESYLATE 5 MG TAB PO SCH (09:33)
[2020-02-08] MEDS: AMIODARONE HCL 200 MG TABLET PO SCH (09:33)
--- NOTE | 2020-02-08 15:19 | NUR ---
TO OR , VIA BED , REVIEW . CARE , AND CONSENT . DAUGHTER WITH PT. AND OR STAFF .
[2020-02-08] MEDS ORDERED: SCOPOLAMINE HYDROBROMIDE 1 EACH ADH..PATCH TD ONE (15:34)
[2020-02-08] MEDS ORDERED: LIDOCAINE HCL 1% 20 ML VIAL ONE (15:34)
[2020-02-08] MEDS ORDERED: BUPIVACAINE/PF 0.5% 10ML VIAL ONE (15:35)
[2020-02-08] MEDS ORDERED: PROPOFOL 10 MG/ML 20ML VIAL IV ONE (15:39)
[2020-02-08] MEDS ORDERED: ONDANSETRON HCL 4 MG/2 ML VIAL ONE (15:39)
[2020-02-08] MEDS ORDERED: LIDOCAINE PF 2% 5ML ABBOJECT ONE (15:39)
[2020-02-08] MEDS ORDERED: SUCCINYLCHOLINE 200MG/10ML SYR ONE (15:39)
[2020-02-08] MEDS ORDERED: MIDAZOLAM HCL 1 MG/ML 2ML VIAL ONE ×2 (15:39→15:51)
[2020-02-08] MEDS ORDERED: DEXAMETHASONE SOD PHOSPHATE 10MG/ML 1ML VIAL ONE (15:39)
[2020-02-08] MEDS ORDERED: FENTANYL CITRATE PF 50 MCG/1 ML 2ML VIAL ONE (15:40)
[2020-02-08] MEDS ORDERED: MEPERIDINE-PF 25 MG/ML SYG ONE (15:43)
--- NOTE | 2020-02-08 16:01 | NUR ---
RD NOTE RD screen due to LOS x7 days. Pt admitted due to osteomyelitis of left foot. Pt has hx of ESRD on HD, DM, CAD, SD, PVD, HLD, and Anemia. Pt is currently NPO and awaiting TMA surgery. Pt was previously on a Renal HD diet and consuming 75-50% When medically feasible, consider a renal HD diet with a 75 gm CC diet modifier. Monitor PO intake and tolerance after surgery Contact dietitian as nutritional concerns arise.
--- NOTE | 2020-02-08 17:25 | NUR ---
PT BACK FROM SURGERY,, REVIEW PLAN OF CARE, AND LEFT DRSG TO FOOT ,DRY AND CLEAN. NOTED NO DRAINAGE, POSTOP V/S MONITOR , STARTED , ASK IF PT HAD ANY PAIN, STATED NO , SLEEPY , AROUSABLE , DAUGHTER AT THE BEDSIDE, AND CALL LIGHT IN REACH
[2020-02-08] MEDS: FISH OIL 1000 MG/CAP PO SCH (20:03)
[2020-02-08] MEDS: ATORVASTATIN CALCIUM 10 MG TABLET PO SCH (20:04)
[2020-02-09] VITALS: BP 116/37
[2020-02-09] MEDS: HEPARIN SODIUM 5000UNIT/ML 1ML VIAL SQ SCH ×2 (00:26→13:15)
[2020-02-09] MEDS: ZOSYN 3.375GM+NS 50ML 50 ML IV SCH ×2 (04:16→17:11)
[2020-02-09 05:23] VITALS: BP 113/37
[2020-02-09] MEDS: INSULIN R PO SS1 SQ SCH ×4 (06:06→21:31)
[2020-02-09] MEDS: ACETAMINOPHEN 325 MG TAB PO PRN ×3 (06:15→20:15)
--- NOTE | 2020-02-09 07:45 | NUR ---
[place] TX. TODAY, HOLIDAY TOMORROW,
[2020-02-09 08:41] LABS: BASOPHILS % (AUTO) 0.9 % (0.0-5.0); EOSINOPHILS % (AUTO) 1.9 % (0.0-8.0); LYMPHOCYTES % (AUTO) 15.9 % (21.0-51.0); MEAN CORPUSCULAR HGB CONC 31.7 g/dL (32.0-36.0); MEAN CORPUSCULAR VOLUME 97.8 fL (79-99); MONOCYTES % (AUTO) 6.2 % (3.0-13.0); NEUTROPHILS % (AUTO) 74.6 % (40.0-77.0); PLATELET COUNT (AUTO) 128 K/uL (130-400); RED BLOOD CELL COUNT(AUTO) 3.58 MIL/uL (4.00-5.50); RED CELL DISTRIBUTION WIDTH 16.7 % (11.0-15.5)
[2020-02-09 08:49] LABS: CREATININE 4.8 mg/dL (0.5-1.5); POTASSIUM 3.8 mmol/L (3.5-5.1)
--- NOTE | 2020-02-09 10:45 | NUR ---
HD TX. NOW COMPLETE, 1 LITER REMOVED, TOLERATED PROCEDURE WELL, BP 115/47, HR77. SCHEDULED AM MEDS NOW GIVEN.
[2020-02-09] MEDS: ASPIRIN 81MG TAB.CHEW PO SCH (11:39)
[2020-02-09] MEDS: LOSARTAN 50 MG TABLET PO SCH (11:40)
[2020-02-09] MEDS: CARVEDILOL 6.25 MG TABLET PO SCH ×2 (11:40→20:14)
[2020-02-09] MEDS: AMIODARONE HCL 200 MG TABLET PO SCH (11:41)
[2020-02-09] MEDS: Vitamin B Complex/Vit C/Folic Acid PO SCH (11:41)
[2020-02-09] MEDS: PANTOPRAZOLE SODIUM 40 MG TABLET.DR PO SCH (11:41)
[2020-02-09] MEDS: AMLODIPINE BESYLATE 5 MG TAB PO SCH (11:41)
[2020-02-09 13:16] VITALS: BP 121/65
[2020-02-09 16:40] VITALS: BP 146/32
[2020-02-09] MEDS: FISH OIL 1000 MG/CAP PO SCH (20:13)
[2020-02-09] MEDS: ATORVASTATIN CALCIUM 10 MG TABLET PO SCH (20:14)
[2020-02-09 20:49] VITALS: BP 119/27
[2020-02-10 00:23] VITALS: BP 115/21
[2020-02-10] MEDS: HEPARIN SODIUM 5000UNIT/ML 1ML VIAL SQ SCH ×2 (01:25→13:02)
[2020-02-10] MEDS: ZOSYN 3.375GM+NS 50ML 50 ML IV SCH ×2 (04:20→17:21)
[2020-02-10 04:33] VITALS: BP 135/57
[2020-02-10 05:01] LABS: BASOPHILS % (AUTO) 0.6 % (0.0-5.0); HEMATOCRIT 32.5 % (36-48); LYMPHOCYTES % (AUTO) 17.2 % (21.0-51.0); MEAN CORPUSCULAR HEMOGLOBIN 30.4 pg (27.0-33.0); MEAN CORPUSCULAR HGB CONC 31.4 g/dL (32.0-36.0); MONOCYTES % (AUTO) 11.4 % (3.0-13.0); NEUTROPHILS % (AUTO) 68.4 % (40.0-77.0); PLATELET COUNT (AUTO) 118 K/uL (130-400); RED BLOOD CELL COUNT(AUTO) 3.35 MIL/uL (4.00-5.50); RED CELL DISTRIBUTION WIDTH 16.3 % (11.0-15.5); WHITE BLOOD COUNT (AUTO) 12.2 K/uL (4.8-10.8)
[2020-02-10 05:28] LABS: ALBUMIN 2.4 g/dL (3.5-5.0); BILIRUBIN,TOTAL 0.4 mg/dL (0.2-1.0); CREATININE 4.4 mg/dL (0.5-1.5); POTASSIUM 3.5 mmol/L (3.5-5.1)
[2020-02-10] MEDS: INSULIN R PO SS1 SQ SCH ×4 (05:50→20:39)
[2020-02-10 08:27] VITALS: BP 153/26
--- NOTE | 2020-02-10 08:31 | NUR ---
DR. BARRERA IN TO SEE PT. DRESSING CHANGE TO BOTH FEET DONE. PICTURES TAKEN. ALSO STATES FROM HIS STANDPOINT PT. CAN BE DISCHARGED ANY TIME, WILL FOLLOW UP WITH HIM IN HIS OFFICE,
[2020-02-10] MEDS: LOSARTAN 50 MG TABLET PO SCH (09:00)
[2020-02-10] MEDS: PANTOPRAZOLE SODIUM 40 MG TABLET.DR PO SCH (09:05)
[2020-02-10] MEDS: Vitamin B Complex/Vit C/Folic Acid PO SCH (09:05)
[2020-02-10] MEDS: AMLODIPINE BESYLATE 5 MG TAB PO SCH (09:06)
[2020-02-10] MEDS: CARVEDILOL 6.25 MG TABLET PO SCH ×2 (09:06→20:41)
[2020-02-10] MEDS: ASPIRIN 81MG TAB.CHEW PO SCH (09:06)
[2020-02-10] MEDS: ACETAMINOPHEN 325 MG TAB PO PRN ×2 (09:07→20:42)
[2020-02-10] MEDS: AMIODARONE HCL 200 MG TABLET PO SCH (09:07)
[2020-02-10 13:39] VITALS: BP 116/24
[2020-02-10] MEDS: VANCOMYCIN 0.75 GM in SODIUM CHLORIDE 0.9% 250 ML IV SCH (14:00)
[2020-02-10 17:49] VITALS: BP 139/74
[2020-02-10] MEDS: FISH OIL 1000 MG/CAP PO SCH (20:40)
[2020-02-10] MEDS: ATORVASTATIN CALCIUM 10 MG TABLET PO SCH (20:41)
[2020-02-10 20:47] VITALS: BP 155/49
[2020-02-11 00:04] VITALS: BP 123/30
[2020-02-11] MEDS: HEPARIN SODIUM 5000UNIT/ML 1ML VIAL SQ SCH ×2 (01:04→12:12)
[2020-02-11 04:30] VITALS: BP 140/35
[2020-02-11] MEDS: ZOSYN 3.375GM+NS 50ML 50 ML IV SCH (04:55)
[2020-02-11] MEDS: INSULIN R PO SS1 SQ SCH ×4 (06:22→21:00)
[2020-02-11 07:59] VITALS: BP 109/74
[2020-02-11] MEDS: AMLODIPINE BESYLATE 5 MG TAB PO SCH (09:00)
[2020-02-11] MEDS: LOSARTAN 50 MG TABLET PO SCH (09:00)
[2020-02-11] MEDS: ASPIRIN 81MG TAB.CHEW PO SCH (09:45)
[2020-02-11] MEDS: PANTOPRAZOLE SODIUM 40 MG TABLET.DR PO SCH (09:45)
[2020-02-11] MEDS: CARVEDILOL 6.25 MG TABLET PO SCH ×2 (09:45→21:27)
[2020-02-11] MEDS: AMIODARONE HCL 200 MG TABLET PO SCH (09:45)
[2020-02-11] MEDS: Vitamin B Complex/Vit C/Folic Acid PO SCH (09:45)
[2020-02-11 11:39] VITALS: BP 112/33
--- NOTE | 2020-02-11 13:00 | NUR ---
CM Note: Pt declined placement CM met with pt and spouse in room, discussed MD juliannes for rehab placement, at this time pt declined, verbalized would like to go back home, if needed agreeable only to any [facility], has a current HH 3x/wk but unable to recall company name, ROLLY consent signed for any in network HH. Primary nurse Arina TAPIA made aware. CM to continue to follow up.
[2020-02-11 16:32] VITALS: BP 117/34
[2020-02-11 20:00] VITALS: BP 137/62
[2020-02-11] MEDS: FISH OIL 1000 MG/CAP PO SCH (21:26)
[2020-02-11] MEDS: ATORVASTATIN CALCIUM 10 MG TABLET PO SCH (21:27)
[2020-02-12] VITALS (7 sets, daily range): BP systolic 126–153; BP diastolic 34–95
[2020-02-12] MEDS: HEPARIN SODIUM 5000UNIT/ML 1ML VIAL SQ SCH ×2 (00:23→10:42)
[2020-02-12 05:00] LABS: HEMATOCRIT 30.6 % (36-48); MEAN CORPUSCULAR HEMOGLOBIN 30.4 pg (27.0-33.0); RED BLOOD CELL COUNT(AUTO) 3.22 MIL/uL (4.00-5.50); RED CELL DISTRIBUTION WIDTH 16.1 % (11.0-15.5); WHITE BLOOD COUNT (AUTO) 10.8 K/uL (4.8-10.8)
[2020-02-12 05:17] LABS: ALBUMIN 2.2 g/dL (3.5-5.0); BILIRUBIN,TOTAL 0.4 mg/dL (0.2-1.0); POTASSIUM 4.1 mmol/L (3.5-5.1); TOTAL PROTEIN, SERUM 5.9 g/dL (6.0-8.3); VANCOMYCIN LEVEL 24.9 mcg/mL (18.0-26.0)
[2020-02-12] MEDS: INSULIN R PO SS1 SQ SCH ×4 (05:28→20:01)
--- NOTE | 2020-02-12 05:34 | NUR ---
PATIENT UPDATE HASN'T REQUIRED FOR ANY PAIN MEDS OVERNIGHT. SLEPT FAIRLY OVERNIGHT. REFUSING FOR REHAB PLACEMENT, WOULD RATHER GETS DISCHARGE TO HOME AND MAYBE AVAIL OF NETWORK HH.
[2020-02-12] MEDS: AMLODIPINE BESYLATE 5 MG TAB PO SCH (09:00)
[2020-02-12] MEDS: LOSARTAN 50 MG TABLET PO SCH (09:00)
[2020-02-12] MEDS: AMIODARONE HCL 200 MG TABLET PO SCH (10:36)
[2020-02-12] MEDS: PANTOPRAZOLE SODIUM 40 MG TABLET.DR PO SCH (10:39)
[2020-02-12] MEDS: Vitamin B Complex/Vit C/Folic Acid PO SCH (10:39)
[2020-02-12] MEDS: ASPIRIN 81MG TAB.CHEW PO SCH (10:40)
[2020-02-12] MEDS: CARVEDILOL 6.25 MG TABLET PO SCH ×2 (10:40→21:14)
[2020-02-12] MEDS: VANCOMYCIN 0.75 GM in SODIUM CHLORIDE 0.9% 250 ML IV SCH (10:41)
--- NOTE | 2020-02-12 13:39 | NUR ---
CALLED AND NOTIFIED RT, GILA REGARDING WEANING OFF O2 GILA VERBALIZED UNDERSTANDING.
[2020-02-12] MEDS: ATORVASTATIN CALCIUM 10 MG TABLET PO SCH (21:13)
[2020-02-12] MEDS: FISH OIL 1000 MG/CAP PO SCH (21:13)
--- NOTE | 2020-02-12 22:27 | NUR ---
Watery stool x3 Informed Dr. Montenegro thru phone with the following orders: 1. Collect stool sample for C-diff and Fecal Leukocytes 2. Imodium 1 tab po q6hrs prn for diarrhea.
[2020-02-12] MEDS ORDERED: LOPERAMIDE HCL 2 MG CAP PO PRN (22:30)
[2020-02-13] MEDS: HEPARIN SODIUM 5000UNIT/ML 1ML VIAL SQ SCH ×2 (01:34→14:10)
[2020-02-13 03:13] VITALS: BP 138/42
[2020-02-13 05:06] LABS: BASOPHILS % (AUTO) 0.6 % (0.0-5.0); EOSINOPHILS % (AUTO) 2.2 % (0.0-8.0); HEMATOCRIT 32.8 % (36-48); LYMPHOCYTES % (AUTO) 22.8 % (21.0-51.0); MEAN CORPUSCULAR HEMOGLOBIN 30.3 pg (27.0-33.0); MEAN CORPUSCULAR HGB CONC 31.1 g/dL (32.0-36.0); MEAN CORPUSCULAR VOLUME 97.3 fL (79-99); MONOCYTES % (AUTO) 11.4 % (3.0-13.0); NEUTROPHILS % (AUTO) 62.4 % (40.0-77.0); PLATELET COUNT (AUTO) 145 K/uL (130-400); RED BLOOD CELL COUNT(AUTO) 3.37 MIL/uL (4.00-5.50); RED CELL DISTRIBUTION WIDTH 15.9 % (11.0-15.5); WHITE BLOOD COUNT (AUTO) 9.5 K/uL (4.8-10.8)
[2020-02-13 05:24] LABS: CREATININE 5.1 mg/dL (0.5-1.5); POTASSIUM 4.2 mmol/L (3.5-5.1)
[2020-02-13 06:17] VITALS: BP 167/34
[2020-02-13] MEDS: INSULIN R PO SS1 SQ SCH ×4 (07:30→21:00)
[2020-02-13] MEDS: LOSARTAN 50 MG TABLET PO SCH (09:00)
[2020-02-13] MEDS: AMLODIPINE BESYLATE 5 MG TAB PO SCH (09:00)
[2020-02-13] MEDS: Vitamin B Complex/Vit C/Folic Acid PO SCH (09:30)
[2020-02-13] MEDS: PANTOPRAZOLE SODIUM 40 MG TABLET.DR PO SCH (09:30)
[2020-02-13] MEDS: CARVEDILOL 6.25 MG TABLET PO SCH ×2 (09:31→22:05)
[2020-02-13] MEDS: AMIODARONE HCL 200 MG TABLET PO SCH (09:32)
[2020-02-13] MEDS: ASPIRIN 81MG TAB.CHEW PO SCH (09:32)
[2020-02-13 12:32] VITALS: BP 151/38
[2020-02-13 16:30] VITALS: BP 168/52
[2020-02-13 20:44] VITALS: BP 171/42
[2020-02-13] MEDS: FISH OIL 1000 MG/CAP PO SCH (22:05)
[2020-02-13] MEDS: ATORVASTATIN CALCIUM 10 MG TABLET PO SCH (22:05)
[2020-02-14] VITALS (7 sets, daily range): BP systolic 116–181; BP diastolic 30–96
[2020-02-14] MEDS: HEPARIN SODIUM 5000UNIT/ML 1ML VIAL SQ SCH ×2 (00:28→13:12)
--- NOTE | 2020-02-14 01:33 | NUR ---
PATIENT BLOOD PRESSURE PAGED DR. MARSHALL AND NOTIFIED HIM OF PATIENT'S ELEVATED BLOOD PRESSURE READINGS. STATED, " OK DON'T WORRY ABOUT IT. WE WILL TAKE CARE OF IT LATER ON THIS MORNING." PATIENT RESTING IN BED. ASYMPTOMATIC. WILL CONTINUE TO MONITOR THE PATIENT.
[2020-02-14 04:51] LABS: BASOPHILS % (AUTO) 0.8 % (0.0-5.0); HEMATOCRIT 33.4 % (36-48); LYMPHOCYTES % (AUTO) 25.4 % (21.0-51.0); MEAN CORPUSCULAR HEMOGLOBIN 30.7 pg (27.0-33.0); MEAN CORPUSCULAR HGB CONC 31.7 g/dL (32.0-36.0); MEAN CORPUSCULAR VOLUME 96.8 fL (79-99); MONOCYTES % (AUTO) 11.3 % (3.0-13.0); NEUTROPHILS % (AUTO) 58.4 % (40.0-77.0); PLATELET COUNT (AUTO) 149 K/uL (130-400); RED BLOOD CELL COUNT(AUTO) 3.45 MIL/uL (4.00-5.50); RED CELL DISTRIBUTION WIDTH 15.8 % (11.0-15.5); WHITE BLOOD COUNT (AUTO) 8.3 K/uL (4.8-10.8)
[2020-02-14 05:18] LABS: CREATININE 6.8 mg/dL (0.5-1.5); POTASSIUM 4.8 mmol/L (3.5-5.1)
[2020-02-14] MEDS: INSULIN R PO SS1 SQ SCH ×4 (07:03→20:56)
[2020-02-14] MEDS: LOSARTAN 50 MG TABLET PO SCH (08:15)
[2020-02-14] MEDS: PANTOPRAZOLE SODIUM 40 MG TABLET.DR PO SCH (08:15)
[2020-02-14] MEDS: AMIODARONE HCL 200 MG TABLET PO SCH (08:15)
[2020-02-14] MEDS: AMLODIPINE BESYLATE 5 MG TAB PO SCH (08:15)
[2020-02-14] MEDS: Vitamin B Complex/Vit C/Folic Acid PO SCH (08:15)
[2020-02-14] MEDS: ASPIRIN 81MG TAB.CHEW PO SCH (08:15)
[2020-02-14] MEDS: CARVEDILOL 6.25 MG TABLET PO SCH ×2 (08:17→21:00)
--- NOTE | 2020-02-14 13:21 | NUR ---
RD NOTIFICATION Pt admitted due to Osteomyelitis to left foot RD assessment due to LOS X13 Pt is currently on a renal HD diet and as per EMR, PO intake of 25-50% Pt is s/p Left TMA. Pt's BMI is of 34.9, classified as obesity II As per previous EMR, pt was at 229 lbs in December 2019, Current wt is of 189 lbs. This shows a 40 lb wt loss in 1 month. 82% UBW (moderate malnutrition). 17% wt change in 1 month. Pt is at mild-moderate malnutrition risk RD RECOMMENDATION: Nepro BID ProMod 60 ml BID Monitor PO intake RD will continue to follow Contact as nutritional concerns arise LABS: WBC 8.3, CL 99, BUN 20, CREAT 6.8, GFR 7, BG 177, TOT CA 8.6, ALB 2.2, TOT PRO 5.9, PHOS 4.9 Addendum: 02/14/20 at [address] Amended: Links added.
[2020-02-14] MEDS: FISH OIL 1000 MG/CAP PO SCH (21:45)
[2020-02-14] MEDS: ATORVASTATIN CALCIUM 10 MG TABLET PO SCH (21:45)
[2020-02-15] MEDS: HEPARIN SODIUM 5000UNIT/ML 1ML VIAL SQ SCH ×3 (01:36→12:24)
[2020-02-15 04:08] VITALS: BP 162/48
[2020-02-15] MEDS: INSULIN R PO SS1 SQ SCH ×4 (07:30→21:00)
[2020-02-15] MEDS: HEPARIN SODIUM 5000UNIT/ML 1ML VIAL IJ PRN (09:53)
[2020-02-15 10:22] VITALS: BP 179/67
--- NOTE | 2020-02-15 10:34 | NUR ---
CM NOTE/APS HH PER IRLANDA AT [facility], PATIENT APPROVED FOR SERVICES. [facility] WILL EMAIL ME REQUIRED FORMS SO THAT PATIENT CAN TAKE TO DR. BATISTA APPOINTMENT AND HAVE MD SIGN TO INITATE SERVICES AT HOME. PRIMARY NURSE, ALEKS TAPIA, AWARE WELL PATIENT AND SPOUSE.
[2020-02-15] MEDS ORDERED: LEVO500T89 PO (11:50)
[2020-02-15] MEDS ORDERED: LEVOFLOXACIN 500 MG TABLET PO SCH (12:00)
[2020-02-15] MEDS: PANTOPRAZOLE SODIUM 40 MG TABLET.DR PO SCH (12:04)
[2020-02-15] MEDS: Vitamin B Complex/Vit C/Folic Acid PO SCH (12:04)
[2020-02-15] MEDS: ASPIRIN 81MG TAB.CHEW PO SCH (12:04)
[2020-02-15] MEDS: AMLODIPINE BESYLATE 5 MG TAB PO SCH (12:04)
[2020-02-15] MEDS: LOSARTAN 50 MG TABLET PO SCH (12:04)
[2020-02-15] MEDS: AMIODARONE HCL 200 MG TABLET PO SCH (12:05)
[2020-02-15] MEDS: CARVEDILOL 6.25 MG TABLET PO SCH ×2 (12:05→21:00)
[2020-02-15] MEDS: VANCOMYCIN 0.75 GM in SODIUM CHLORIDE 0.9% 250 ML IV SCH (12:06)
[2020-02-15 13:24] VITALS: BP 140/32
[2020-02-15 15:57] VITALS: BP 118/30
[2020-02-15] MEDS ORDERED: LEVOFLOXACIN 500 MG TABLET ONE (17:05)
--- NOTE | 2020-02-15 17:52 | NUR ---
CM NOTE/EMS PRIOR AUTH REQUEST FAXED TO [facility] FOR NON EMERGENT EMS TRANSFER. [facility] FORMS IN CHART FOR NURSING STAFF TO USE. PRIMARY NURSE, ALEKS TAPIA, AWARE.
--- NOTE | 2020-02-15 18:33 | NUR ---
D/C PAPERWORK COMPLETE; I CALLED [facility] AND GAVE REPORT TO KENNETH; EMS CALLED AND COMING TO PICK PT UP TO TRANSPORT HOME; PT STATED UNDERSTANDING OF ALL INSTRUCTINS INCLUDING F/U WITH DR BARRERA, LYNNE, AND JOANNA; NEW SCRIPT FOR LEVOFLAXACIN SENT TO B PHARMACY; IV ACCESS AND TELE BOX REMOVED.
[2020-02-15 20:00] VITALS: BP 154/43
[2020-02-15 21:00] VITALS: BP 154/43
[2020-02-15] MEDS: ATORVASTATIN CALCIUM 10 MG TABLET PO SCH (21:51)
[2020-02-15] MEDS: FISH OIL 1000 MG/CAP PO SCH (21:51)
== END 2020-02-15 22:10 | disposition home health service (06) | DRG 463 ==
LOC: EDH 11:16 → OBSVTOIN 14:44 → EDHIP 14:44 → 3DH 02-02 00:18
PROVIDERS: ADMIT Internal Medicine Nephrology; ATTEND Internal Medicine Nephrology
PROC: 3E0234Z Introduction of Serum, Toxoid and Vaccine into Muscle, Percutaneous Approach (ICD-10-PCS; 2020-02-02)
PROC: 5A1D70Z Performance of Urinary Filtration, Intermittent, Less than 6 Hours Per Day (ICD-10-PCS; 2020-02-03)
PROC: 5A1D70Z Performance of Urinary Filtration, Intermittent, Less than 6 Hours Per Day (ICD-10-PCS; 2020-02-05)
PROC: B4101ZZ Fluoroscopy of Abdominal Aorta using Low Osmolar Contrast (ICD-10-PCS; principal; 2020-02-07)
PROC: B41G1ZZ Fluoroscopy of Left Lower Extremity Arteries using Low Osmolar Contrast (ICD-10-PCS; 2020-02-07)
PROC: 5A1D70Z Performance of Urinary Filtration, Intermittent, Less than 6 Hours Per Day (ICD-10-PCS; 2020-02-07)
PROC: 0JBR0ZZ Excision of Left Foot Subcutaneous Tissue and Fascia, Open Approach (ICD-10-PCS; 2020-02-08)
PROC: 0Y6N0ZB Detachment at Left Foot, Partial 2nd Ray, Open Approach (ICD-10-PCS; 2020-02-08)
PROC: 0Y6N0ZC Detachment at Left Foot, Partial 3rd Ray, Open Approach (ICD-10-PCS; 2020-02-08)
PROC: 0Y6N0ZD Detachment at Left Foot, Partial 4th Ray, Open Approach (ICD-10-PCS; 2020-02-08)
PROC: 0Y6N0ZF Detachment at Left Foot, Partial 5th Ray, Open Approach (ICD-10-PCS; 2020-02-08)
PROC: 0Y6N0Z9 Detachment at Left Foot, Partial 1st Ray, Open Approach (ICD-10-PCS; 2020-02-08 15:43)
PROC: 5A1D70Z Performance of Urinary Filtration, Intermittent, Less than 6 Hours Per Day (ICD-10-PCS; 2020-02-09)
PROC: 5A1D70Z Performance of Urinary Filtration, Intermittent, Less than 6 Hours Per Day (ICD-10-PCS; 2020-02-12)
PROC: 5A1D70Z Performance of Urinary Filtration, Intermittent, Less than 6 Hours Per Day (ICD-10-PCS; 2020-02-15)
DX: T87.44 Infection of amputation stump, left lower extremity (principal); N18.6 End stage renal disease; L97.319 Non-pressure chronic ulcer of right ankle with unspecified severity; I12.0 Hypertensive chronic kidney disease with stage 5 chronic kidney disease or end stage renal disease; I47.1 Supraventricular tachycardia; I48.92 Unspecified atrial flutter; L03.116 Cellulitis of left lower limb; M86.8X7 Other osteomyelitis, ankle and foot; E11.52 Type 2 diabetes mellitus with diabetic peripheral angiopathy with gangrene; I96 Gangrene, not elsewhere classified; L97.419 Non-pressure chronic ulcer of right heel and midfoot with unspecified severity; T87.81 Dehiscence of amputation stump; E11.69 Type 2 diabetes mellitus with other specified complication; E11.22 Type 2 diabetes mellitus with diabetic chronic kidney disease; E88.09 Other disorders of plasma-protein metabolism, not elsewhere classified; E11.621 Type 2 diabetes mellitus with foot ulcer; I48.0 Paroxysmal atrial fibrillation; E11.622 Type 2 diabetes mellitus with other skin ulcer; L97.529 Non-pressure chronic ulcer of other part of left foot with unspecified severity; I25.10 Atherosclerotic heart disease of native coronary artery without angina pectoris; D63.8 Anemia in other chronic diseases classified elsewhere; E11.319 Type 2 diabetes mellitus with unspecified diabetic retinopathy without macular edema; E66.9 Obesity, unspecified; E78.5 Hyperlipidemia, unspecified; I25.2 Old myocardial infarction; I25.5 Ischemic cardiomyopathy; L89.90 Pressure ulcer of unspecified site, unspecified stage; L97.519 Non-pressure chronic ulcer of other part of right foot with unspecified severity; B95.8 Unspecified staphylococcus as the cause of diseases classified elsewhere; R53.81 Other malaise; B96.1 Klebsiella pneumoniae [K. pneumoniae] as the cause of diseases classified elsewhere; Y83.5 Amputation of limb(s) as the cause of abnormal reaction of the patient, or of later complication, without mention of misadventure at the time of the procedure; Z79.01 Long term (current) use of anticoagulants; Z83.3 Family history of diabetes mellitus; Z95.5 Presence of coronary angioplasty implant and graft; Z99.2 Dependence on renal dialysis; Z23 Encounter for immunization; Z95.1 Presence of aortocoronary bypass graft; Z68.34 Body mass index [BMI] 34.0-34.9, adult; Z88.1 Allergy status to other antibiotic agents; Z88.5 Allergy status to narcotic agent
CPT/HCPCS: 36246; 36415; 73630; 73718; 75716; 80048; 80053; 80074; 80202; 82948; 83605; 84100; 84132; 85025; 85027; 85610; 85730; 86704; 86706; 87040; 87070; 87076; 87077; 87186; 87205; 87340; 87520; 88307; 88311; 90714; 90935; 93926; 99156; 99157; C1894; G0378; J0330; J1100; J1170; J1644; J1815; J2001; J2175; J2250; J2405; J2543; J2704; J3010; J3370; J3490; J7050; Q9967

== ENCOUNTER 2021-05-09 07:10 | Day surgery (SDC) | payer MEDICARE ==
[2021-05-07 14:43] LABS: BASOPHILS % (AUTO) 0.8 % (0.0-5.0); EOSINOPHILS % (AUTO) 2.4 % (0.0-8.0); HEMATOCRIT 36.8 % (36-48); LYMPHOCYTES % (AUTO) 27.4 % (21.0-51.0); MEAN CORPUSCULAR HEMOGLOBIN 32.2 pg (27.0-33.0); MEAN CORPUSCULAR HGB CONC 31.3 g/dL (32.0-36.0); MEAN CORPUSCULAR VOLUME 103.1 fL (79-99); MONOCYTES % (AUTO) 9.8 % (3.0-13.0); NEUTROPHILS % (AUTO) 59.1 % (40.0-77.0); PLATELET COUNT (AUTO) 107 K/uL (130-400); RED BLOOD CELL COUNT(AUTO) 3.57 MIL/uL (4.00-5.50); RED CELL DISTRIBUTION WIDTH 18.2 % (11.0-15.5); WHITE BLOOD COUNT (AUTO) 6.3 K/uL (4.8-10.8)
[2021-05-07 14:56] LABS: CREATININE 5.6 mg/dL (0.5-1.5); POTASSIUM 4.7 mmol/L (3.5-5.1)
[2021-05-07 14:58] LABS: INR 1.36 (0.85-1.15); PROTHROMBIN TIME 14.4 SEC (9.6-11.6)
[2021-05-07 14:59] LABS: PARTIAL THROMBOPLASTIN TIME 29.6 SEC (26.3-35.5)
[~2021-05-09] VITALS: Ht 157.5 cm; Wt 94.6 kg
[2021-05-09] VITALS (13 sets, daily range): BP systolic 101–154; BP diastolic 17–78
[~2021-05-09 07:10] MED LIST changes: +0.9% NACL 500ML IV.SOLN 500 ML IV SCH; -AMIO200T6 PO; +AMIO200T68 PO; +AMLO-257 PO; -CARV12.511 PO; +CARV6.25 PO; +CHOL100046 PO; +FISH1CAP63 PO; -FOLI1TAB85 PO; +MIDO5TAB4 PO; -OMEG-96 PO; -PANT40TA54 PO; +renavite PO
[2021-05-09] MEDS ORDERED: 0.9%NACL 1000ML 1,000 ML IV ONE (08:49)
[2021-05-09] MEDS ORDERED: NALOXONE HCL 0.4 MG/1 ML ML ONE (08:49)
[2021-05-09] MEDS ORDERED: FLUMAZENIL 0.1MG/1ML 5ML VIAL IV ONE (08:49)
[2021-05-09] MEDS ORDERED: MIDAZOLAM HCL 1 MG/ML 2ML VIAL ONE (08:50)
[2021-05-09] MEDS ORDERED: FENTANYL CITRATE PF 50 MCG/1 ML 2ML VIAL ONE (08:50)
== END 2021-05-09 14:28 | disposition home or self-care (01) ==
LOC: DAH 07:10
PROVIDERS: ATTEND Internal Medicine Cardiovascular Disease
DX: I47.1 Supraventricular tachycardia (principal); Z20.822 Contact with and (suspected) exposure to COVID-19; I13.2 Hypertensive heart and chronic kidney disease with heart failure and with stage 5 chronic kidney disease, or end stage renal disease; E11.22 Type 2 diabetes mellitus with diabetic chronic kidney disease; I50.43 Acute on chronic combined systolic (congestive) and diastolic (congestive) heart failure; N18.6 End stage renal disease; E78.5 Hyperlipidemia, unspecified; I48.0 Paroxysmal atrial fibrillation; I25.2 Old myocardial infarction; Z95.1 Presence of aortocoronary bypass graft; Z98.890 Other specified postprocedural states; Z95.5 Presence of coronary angioplasty implant and graft; Z90.49 Acquired absence of other specified parts of digestive tract; Z82.49 Family history of ischemic heart disease and other diseases of the circulatory system; Z79.82 Long term (current) use of aspirin; Z79.01 Long term (current) use of anticoagulants; Z99.2 Dependence on renal dialysis; Z79.899 Other long term (current) drug therapy
CPT/HCPCS: 36415; 80048; 85025; 85610; 85730; 87635; 92960; 93005 ×2; A4215; A4216; A4221; A4222; A4223 ×3; A4606; A4615; A4663; A7002; C9803; J2250; J3010; J7030 ×2; J2310; J3490

== ENCOUNTER 2021-12-04 18:35 | Inpatient (IN) | payer MEDICARE ==
[~2021-12-04] VITALS: Ht 152.4 cm; Wt 76.2 kg
[~2021-12-04 18:35] MED LIST changes: -0.9% NACL 500ML IV.SOLN 500 ML IV SCH; -ASPI-1443 PO
[2021-12-04] MEDS ORDERED: ZOSYN 3.375GM +NS 50ML IV ONE (19:30)
[2021-12-04] MEDS ORDERED: VANCOMYCIN KIT 1 GM/250 ML IV.KIT IV ONE (19:30)
[2021-12-04 20:31] LABS: BASOPHILS % (AUTO) 0.5 % (0.0-5.0); EOSINOPHILS % (AUTO) 1.4 % (0.0-8.0); LYMPHOCYTES % (AUTO) 11.2 % (21.0-51.0); MEAN CORPUSCULAR HEMOGLOBIN 31.7 pg (27.0-33.0); MEAN CORPUSCULAR HGB CONC 31.7 g/dL (32.0-36.0); MONOCYTES % (AUTO) 6.5 % (3.0-13.0); NUCLEATED RED BLOOD CELLS 0.2 % (0.0-0.19); PLATELET COUNT (AUTO) 167 K/uL (130-400); RED CELL DISTRIBUTION WIDTH 16.3 % (11.0-15.5); WHITE BLOOD COUNT (AUTO) 11.8 K/uL (4.8-10.8)
[2021-12-04 20:38] LABS: CREATININE 3.6 mg/dL (0.5-1.5); POTASSIUM 4.2 mmol/L (3.5-5.1)
[2021-12-04 20:42] LABS: ALBUMIN 2.8 g/dL (3.5-5.0); TOTAL PROTEIN, SERUM 6.7 g/dL (6.0-8.3)
[2021-12-04 20:43] LABS: INR 1.29 (0.85-1.15); PROTHROMBIN TIME 13.9 SEC (9.6-11.6)
[2021-12-04 20:44] LABS: PARTIAL THROMBOPLASTIN TIME 30.1 SEC (26.3-35.5)
[2021-12-04] MEDS ORDERED: ZOSYN 3.375GM+NS 50ML 50 ML ONE (23:53)
[2021-12-04] MEDS ORDERED: VANCOMYCIN 1G/250ML KIT 250 ML IV ONE (23:56)
[2021-12-05] MEDS ORDERED: TRAMADOL HCL 50 MG TABLET PO PRN (01:00)
[2021-12-05] MEDS ORDERED: AEC81 PO (03:39)
[2021-12-05] MEDS: INSULIN HUMULIN R 100 UNIT/ML 3ML SQ SCH ×4 (07:08→21:00)
[2021-12-05] MEDS ORDERED: IOHEXOL 350 MG/ML 100ML INFUS..BTL IV ONE (07:32)
[2021-12-05] MEDS ORDERED: ZOSYN 3.375GM+NS 50ML 50 ML ONE (07:58)
[2021-12-05] MEDS: ZOSYN 3.375GM +NS 50ML IV SCH ×2 (08:04→21:12)
[2021-12-05] MEDS ORDERED: VANCOMYCIN PROTOCOL PER PHARMACY IV SCH (09:00)
[2021-12-05 16:00] VITALS: BP 113/58
[2021-12-05] MEDS ORDERED: ASPIRIN 81MG CHEW TAB PO ONE (18:00)
[2021-12-05 19:45] VITALS: BP 163/62
[2021-12-05] MEDS ORDERED: CARVEDILOL 6.25 MG TABLET PO ONE (21:30)
[2021-12-05] MEDS ORDERED: ATORVASTATIN 20 MG TABLET PO ONE (21:30)
[2021-12-05 23:36] VITALS: BP 117/71
[2021-12-06] VITALS (26 sets, daily range): BP systolic 57–160; BP diastolic 38–101
[2021-12-06 05:26] LABS: HEMATOCRIT 30.1 % (36-48); MEAN CORPUSCULAR HEMOGLOBIN 31.8 pg (27.0-33.0); MEAN CORPUSCULAR HGB CONC 31.6 g/dL (32.0-36.0); MEAN CORPUSCULAR VOLUME 100.7 fL (79-99); NUCLEATED RED BLOOD CELLS 0.2 % (0.0-0.19); RED BLOOD CELL COUNT(AUTO) 2.99 MIL/uL (4.00-5.50); RED CELL DISTRIBUTION WIDTH 16.8 % (11.0-15.5); WHITE BLOOD COUNT (AUTO) 10.2 K/uL (4.8-10.8)
[2021-12-06 05:33] LABS: CREATININE 4.9 mg/dL (0.5-1.5); POTASSIUM 4.7 mmol/L (3.5-5.1)
[2021-12-06 05:37] LABS: INR 1.25 (0.85-1.15); PROTHROMBIN TIME 13.5 SEC (9.6-11.6)
[2021-12-06 05:39] LABS: PARTIAL THROMBOPLASTIN TIME 27.6 SEC (26.3-35.5)
[2021-12-06] MEDS ORDERED: DEXTROSE 50%-WATER 50 ML DISP.SYRIN IV ONE ×2 (06:26→06:53)
[2021-12-06] MEDS: INSULIN HUMULIN R 100 UNIT/ML 3ML SQ SCH ×4 (06:34→20:46)
[2021-12-06] MEDS ORDERED: GLUCAGON 1MG KIT 1 MG ML IM PRN (07:00)
[2021-12-06] MEDS ORDERED: DEXTROSE 50%-WATER 50 ML DISP.SYRIN IV PRN (07:00)
[2021-12-06] MEDS ORDERED: LIDOCAINE HCL 1% 10 ML VIAL ONE (07:21)
[2021-12-06] MEDS ORDERED: NICARDIPINE 25MG INJ IV ONE (07:21)
[2021-12-06] MEDS ORDERED: NITROGLYCERIN 50MG VIAL ONE (07:21)
[2021-12-06] MEDS ORDERED: IODIXANOL 320 MG/ML 100 ML VIAL ONE (07:21)
[2021-12-06] MEDS ORDERED: HEPARIN 10,000 UNIT/10ML (1,000 UNIT/ML) VIAL ONE (07:21)
[2021-12-06] MEDS ORDERED: VANCOMYCIN 750MG VIAL IVPB SCH (08:00)
[2021-12-06] MEDS ORDERED: FENTANYL CITRATE PF 50 MCG/1 ML 2ML VIAL ONE (08:14)
[2021-12-06] MEDS ORDERED: MIDAZOLAM HCL 5 MG/ML 2ML VIAL IV ONE (08:15)
[2021-12-06] MEDS ORDERED: CLOPIDOGREL 300MG TAB ONE ×2 (08:44→09:37)
[2021-12-06] MEDS ORDERED: ASPIRIN 325MG EC TAB PO ONE ×2 (08:44→09:37)
[2021-12-06] MEDS: ASPIRIN 81MG CHEW TAB PO SCH (09:00)
[2021-12-06] MEDS ORDERED: 0.9% NACL 250ML 250 ML IV SCH (09:00)
[2021-12-06] MEDS: CARVEDILOL 6.25 MG TABLET PO SCH ×2 (09:00→20:46)
[2021-12-06] MEDS: ZOSYN 3.375GM +NS 50ML IV SCH ×2 (09:00→20:45)
[2021-12-06] MEDS: AMIODARONE 200 MG TABLET PO SCH (09:00)
[2021-12-06] MEDS ORDERED: ONDANSETRON 4MG INJ ONE ×2 (09:03→09:07)
[2021-12-06 12:51] LABS: HEPATITIS B SURFACE ANTIGEN Non-Reactive (Nonreactive)
[2021-12-06] MEDS: VANCOMYCIN 750MG VIAL IVPB SCH (17:22)
[2021-12-06] MEDS ORDERED: HEPARIN 5,000 UNIT VIAL IJ ONE (17:30)
[2021-12-06] MEDS: APIXABAN 5 MG TABLET PO SCH (20:46)
[2021-12-06] MEDS: ATORVASTATIN 20 MG TABLET PO SCH (20:46)
[2021-12-07] MEDS ORDERED: ACETAMINOPHEN 325 MG TAB ONE (00:06)
[2021-12-07 00:37] VITALS: BP 90/64
[2021-12-07] MEDS: ACETAMINOPHEN 325 MG TAB PO PRN (01:03)
[2021-12-07 03:30] VITALS: BP 107/39
[2021-12-07 05:45] LABS: BASOPHILS % (AUTO) 0.4 % (0.0-5.0); EOSINOPHILS % (AUTO) 0.9 % (0.0-8.0); HEMATOCRIT 28.2 % (36-48); LYMPHOCYTES % (AUTO) 8.9 % (21.0-51.0); MEAN CORPUSCULAR HEMOGLOBIN 31.7 pg (27.0-33.0); MEAN CORPUSCULAR HGB CONC 31.9 g/dL (32.0-36.0); MEAN CORPUSCULAR VOLUME 99.3 fL (79-99); MONOCYTES % (AUTO) 5.9 % (3.0-13.0); NEUTROPHILS % (AUTO) 82.1 % (40.0-77.0); NUCLEATED RED BLOOD CELLS 0.8 % (0.0-0.19); PLATELET COUNT (AUTO) 141 K/uL (130-400); RED BLOOD CELL COUNT(AUTO) 2.84 MIL/uL (4.00-5.50); RED CELL DISTRIBUTION WIDTH 17.2 % (11.0-15.5); WHITE BLOOD COUNT (AUTO) 11.7 K/uL (4.8-10.8)
[2021-12-07] MEDS: INSULIN HUMULIN R 100 UNIT/ML 3ML SQ SCH ×4 (05:49→21:00)
[2021-12-07 06:11] LABS: CREATININE 3.8 mg/dL (0.5-1.5); POTASSIUM 4.2 mmol/L (3.5-5.1)
[2021-12-07 07:58] VITALS: BP 121/56
[2021-12-07] MEDS: CARVEDILOL 6.25 MG TABLET PO SCH ×2 (09:00→21:00)
[2021-12-07] MEDS: ZOSYN 3.375GM +NS 50ML IV SCH ×2 (10:08→23:07)
[2021-12-07] MEDS: ONDANSETRON 4MG INJ IVP PRN (10:08)
[2021-12-07 11:20] VITALS: BP 112/33
[2021-12-07] MEDS: APIXABAN 5 MG TABLET PO SCH ×2 (11:30→21:35)
[2021-12-07] MEDS: ASPIRIN 81MG CHEW TAB PO SCH (11:30)
[2021-12-07] MEDS: AMIODARONE 200 MG TABLET PO SCH (11:30)
[2021-12-07] MEDS: CLOPIDOGREL 75MG TAB PO SCH (11:30)
[2021-12-07 15:35] VITALS: BP 99/21
[2021-12-07 20:00] VITALS: BP 80/40
[2021-12-07] MEDS ORDERED: MIDODRINE HCL 5 MG TABLET PO SCH (21:30)
[2021-12-07] MEDS ORDERED: 0.9% NACL 500ML IV.SOLN 500 ML IV ONE ×2 (21:30→21:31)
[2021-12-07] MEDS: ATORVASTATIN 20 MG TABLET PO SCH (21:35)
[2021-12-08] VITALS (21 sets, daily range): BP systolic 98–159; BP diastolic 20–85
[2021-12-08] MEDS: INSULIN HUMULIN R 100 UNIT/ML 3ML SQ SCH ×4 (06:38→21:00)
[2021-12-08 08:33] LABS: HEMATOCRIT 30.4 % (36-48); MEAN CORPUSCULAR HEMOGLOBIN 31.9 pg (27.0-33.0); MEAN CORPUSCULAR HGB CONC 31.6 g/dL (32.0-36.0); NUCLEATED RED BLOOD CELLS 1.4 % (0.0-0.19); PLATELET COUNT (AUTO) 165 K/uL (130-400); RED BLOOD CELL COUNT(AUTO) 3.01 MIL/uL (4.00-5.50); RED CELL DISTRIBUTION WIDTH 18.1 % (11.0-15.5); WHITE BLOOD COUNT (AUTO) 12.1 K/uL (4.8-10.8)
[2021-12-08] MEDS: CARVEDILOL 6.25 MG TABLET PO SCH ×2 (09:00→21:33)
[2021-12-08] MEDS: ZOSYN 3.375GM +NS 50ML IV SCH ×2 (09:37→23:51)
[2021-12-08] MEDS: AMIODARONE 200 MG TABLET PO SCH (09:37)
[2021-12-08] MEDS: CLOPIDOGREL 75MG TAB PO SCH (09:37)
[2021-12-08] MEDS: ASPIRIN 81MG CHEW TAB PO SCH (09:38)
[2021-12-08] MEDS: APIXABAN 5 MG TABLET PO SCH (09:38)
[2021-12-08 10:05] LABS: ALBUMIN 2.4 g/dL (3.5-5.0); CREATININE 4.8 mg/dL (0.5-1.5); PHOSPHORUS 4.7 mg/dL (2.5-4.9); POTASSIUM 3.9 mmol/L (3.5-5.1); TOTAL PROTEIN, SERUM 6.1 g/dL (6.0-8.3)
[2021-12-08] MEDS: HEPARIN 5,000 UNIT VIAL IJ SCH (17:01)
[2021-12-08] MEDS: ATORVASTATIN 20 MG TABLET PO SCH (21:33)
[2021-12-08] MEDS: VANCOMYCIN 750MG VIAL IVPB SCH (21:35)
[2021-12-09] VITALS: BP 127/28
[2021-12-09 04:00] VITALS: BP 120/52
[2021-12-09] MEDS: INSULIN HUMULIN R 100 UNIT/ML 3ML SQ SCH ×4 (06:39→20:46)
[2021-12-09 07:27] VITALS: BP 108/24
[2021-12-09 08:31] LABS: HEMATOCRIT 28.9 % (36-48); MEAN CORPUSCULAR HEMOGLOBIN 32.2 pg (27.0-33.0); MEAN CORPUSCULAR HGB CONC 31.8 g/dL (32.0-36.0); NUCLEATED RED BLOOD CELLS 0.6 % (0.0-0.19); RED BLOOD CELL COUNT(AUTO) 2.86 MIL/uL (4.00-5.50); RED CELL DISTRIBUTION WIDTH 18.3 % (11.0-15.5); WHITE BLOOD COUNT (AUTO) 10.2 K/uL (4.8-10.8)
[2021-12-09] MEDS: CLOPIDOGREL 75MG TAB PO SCH ×2 (09:00→13:20)
[2021-12-09] MEDS: CARVEDILOL 6.25 MG TABLET PO SCH ×3 (09:00→21:00)
[2021-12-09 09:14] LABS: ALBUMIN 2.5 g/dL (3.5-5.0); CREATININE 3.8 mg/dL (0.5-1.5); PHOSPHORUS 3.4 mg/dL (2.5-4.9); POTASSIUM 3.2 mmol/L (3.5-5.1); TOTAL PROTEIN, SERUM 6.3 g/dL (6.0-8.3)
[2021-12-09] MEDS: AMIODARONE 200 MG TABLET PO SCH (09:32)
[2021-12-09] MEDS: ZOSYN 3.375GM +NS 50ML IV SCH ×2 (09:32→20:56)
[2021-12-09 11:14] VITALS: BP 116/26
[2021-12-09] MEDS ORDERED: MIDODRINE HCL 5 MG TABLET PO SCH (12:00)
[2021-12-09] MEDS: ASPIRIN 81MG CHEW TAB PO SCH (13:19)
[2021-12-09] MEDS: HEPARIN 5,000 UNIT VIAL IJ SCH (15:00)
[2021-12-09 15:35] VITALS: BP 114/33
[2021-12-09 20:00] VITALS: BP 143/42
[2021-12-09] MEDS: ATORVASTATIN 20 MG TABLET PO SCH (20:57)
[2021-12-10] VITALS (7 sets, daily range): BP systolic 110–128; BP diastolic 18–39
[2021-12-10 04:12] LABS: BASOPHILS % (AUTO) 0.8 % (0.0-5.0); EOSINOPHILS % (AUTO) 2.3 % (0.0-8.0); HEMATOCRIT 28.1 % (36-48); LYMPHOCYTES % (AUTO) 11.6 % (21.0-51.0); MEAN CORPUSCULAR HEMOGLOBIN 32.5 pg (27.0-33.0); MEAN CORPUSCULAR VOLUME 101.4 fL (79-99); MONOCYTES % (AUTO) 10.9 % (3.0-13.0); NEUTROPHILS % (AUTO) 72.9 % (40.0-77.0); NUCLEATED RED BLOOD CELLS 0.4 % (0.0-0.19); PLATELET COUNT (AUTO) 129 K/uL (130-400); RED BLOOD CELL COUNT(AUTO) 2.77 MIL/uL (4.00-5.50); RED CELL DISTRIBUTION WIDTH 18.7 % (11.0-15.5); WHITE BLOOD COUNT (AUTO) 8.6 K/uL (4.8-10.8)
[2021-12-10 04:36] LABS: CREATININE 4.7 mg/dL (0.5-1.5); PHOSPHORUS 4.1 mg/dL (2.5-4.9); POTASSIUM 3.1 mmol/L (3.5-5.1)
[2021-12-10] MEDS: INSULIN HUMULIN R 100 UNIT/ML 3ML SQ SCH ×4 (06:04→20:24)
[2021-12-10] MEDS: CARVEDILOL 6.25 MG TABLET PO SCH (09:00)
[2021-12-10] MEDS: ZOSYN 3.375GM +NS 50ML IV SCH ×2 (09:05→20:37)
[2021-12-10] MEDS: AMIODARONE 200 MG TABLET PO SCH (09:05)
[2021-12-10] MEDS: ASPIRIN 81MG CHEW TAB PO SCH (09:06)
[2021-12-10] MEDS: CLOPIDOGREL 75MG TAB PO SCH (09:06)
[2021-12-10] MEDS: HEPARIN 5,000 UNIT VIAL IJ SCH (15:00)
[2021-12-10] MEDS: ATORVASTATIN 20 MG TABLET PO SCH (20:37)
[2021-12-10] MEDS: CARVEDILOL 3.125 MG TABLET PO SCH (20:44)
[2021-12-11] VITALS (20 sets, daily range): BP systolic 106–180; BP diastolic 32–93
[2021-12-11 06:04] LABS: HEMATOCRIT 29.7 % (36-48); MEAN CORPUSCULAR HEMOGLOBIN 32.5 pg (27.0-33.0); MEAN CORPUSCULAR VOLUME 101.7 fL (79-99); NUCLEATED RED BLOOD CELLS 0.2 % (0.0-0.19); RED BLOOD CELL COUNT(AUTO) 2.92 MIL/uL (4.00-5.50); RED CELL DISTRIBUTION WIDTH 19.1 % (11.0-15.5); WHITE BLOOD COUNT (AUTO) 8.5 K/uL (4.8-10.8)
[2021-12-11 06:22] LABS: ALBUMIN 2.4 g/dL (3.5-5.0); MAGNESIUM 2.2 mg/dL (1.80-2.40); PHOSPHORUS 4.5 mg/dL (2.5-4.9); POTASSIUM 3.5 mmol/L (3.5-5.1); TOTAL PROTEIN, SERUM 6.2 g/dL (6.0-8.3)
[2021-12-11] MEDS: INSULIN HUMULIN R 100 UNIT/ML 3ML SQ SCH ×4 (06:32→21:00)
[2021-12-11] MEDS: CLOPIDOGREL 75MG TAB PO SCH (09:00)
[2021-12-11] MEDS: CARVEDILOL 3.125 MG TABLET PO SCH ×2 (09:00→21:00)
[2021-12-11] MEDS: ASPIRIN 81MG CHEW TAB PO SCH (09:00)
[2021-12-11] MEDS: AMIODARONE 200 MG TABLET PO SCH (09:00)
[2021-12-11] MEDS: ZOSYN 3.375GM +NS 50ML IV SCH ×2 (09:10→23:14)
[2021-12-11] MEDS: HEPARIN 5,000 UNIT VIAL IJ SCH (14:29)
[2021-12-11] MEDS ORDERED: 0.9% NACL 250ML 250 ML ONE (21:05)
[2021-12-11] MEDS: ATORVASTATIN 20 MG TABLET PO SCH (21:10)
[2021-12-11] MEDS: VANCOMYCIN 750MG VIAL IVPB SCH (21:10)
[2021-12-12 03:43] VITALS: BP 105/23
[2021-12-12 05:28] LABS: HEMATOCRIT 28.8 % (36-48); MEAN CORPUSCULAR HEMOGLOBIN 32.5 pg (27.0-33.0); MEAN CORPUSCULAR HGB CONC 32.3 g/dL (32.0-36.0); MEAN CORPUSCULAR VOLUME 100.7 fL (79-99); NUCLEATED RED BLOOD CELLS 0.3 % (0.0-0.19); PLATELET COUNT (AUTO) 110 K/uL (130-400); RED BLOOD CELL COUNT(AUTO) 2.86 MIL/uL (4.00-5.50); WHITE BLOOD COUNT (AUTO) 7.6 K/uL (4.8-10.8)
[2021-12-12 05:53] LABS: ALBUMIN 2.4 g/dL (3.5-5.0); CREATININE 4.3 mg/dL (0.5-1.5); PHOSPHORUS 3.5 mg/dL (2.5-4.9); POTASSIUM 3.2 mmol/L (3.5-5.1); TOTAL PROTEIN, SERUM 6.3 g/dL (6.0-8.3)
[2021-12-12 06:10] LABS: BAND NEUTROPHILS % (MANUAL) 1 % (0-2); BASOPHILS % (MANUAL) 1 % (0-2); EOSINOPHILS % (MANUAL) 7 % (1-6); LYMPHOCYTES % (MANUAL) 29 % (22-44); MONOCYTES % (MANUAL) 9 % (2-9); SEGMENTED NEUTROPHILS % 53 % (40-70)
[2021-12-12 06:11] LABS: MAN.DIFF COMMENT-IMPRESSION MANUAL DIFFERENTIAL
[2021-12-12] MEDS: INSULIN HUMULIN R 100 UNIT/ML 3ML SQ SCH ×4 (06:20→21:00)
[2021-12-12] MEDS: ZOSYN 3.375GM +NS 50ML IV SCH ×2 (08:23→21:27)
[2021-12-12] MEDS: ASPIRIN 81MG CHEW TAB PO SCH (09:00)
[2021-12-12] MEDS: CLOPIDOGREL 75MG TAB PO SCH (09:00)
[2021-12-12] MEDS: AMIODARONE 200 MG TABLET PO SCH (09:00)
[2021-12-12] MEDS: CARVEDILOL 3.125 MG TABLET PO SCH ×2 (09:00→21:26)
[2021-12-12 10:54] VITALS: BP 134/54
[2021-12-12 12:00] VITALS: BP 162/55
[2021-12-12] MEDS: HEPARIN 5,000 UNIT VIAL IJ SCH (15:00)
[2021-12-12 16:00] VITALS: BP 179/46
[2021-12-12 19:58] VITALS: BP 116/25
[2021-12-12] MEDS: ATORVASTATIN 20 MG TABLET PO SCH (21:26)
[2021-12-13] VITALS (60 sets, daily range): BP systolic 78–184; BP diastolic 30–115
[2021-12-13 06:05] LABS: HEMATOCRIT 30.6 % (36-48); MEAN CORPUSCULAR HGB CONC 31.7 g/dL (32.0-36.0); PLATELET COUNT (AUTO) 95 K/uL (130-400); RED BLOOD CELL COUNT(AUTO) 3.03 MIL/uL (4.00-5.50); RED CELL DISTRIBUTION WIDTH 19.1 % (11.0-15.5)
[2021-12-13] MEDS: INSULIN HUMULIN R 100 UNIT/ML 3ML SQ SCH ×4 (06:19→20:52)
[2021-12-13 06:22] LABS: CREATININE 5.6 mg/dL (0.5-1.5); PHOSPHORUS 4.8 mg/dL (2.5-4.9); POTASSIUM 3.5 mmol/L (3.5-5.1)
[2021-12-13] MEDS ORDERED: DEXAMETHASONE SOD PHOSPHATE 10MG/ML 1ML VIAL ONE (06:32)
[2021-12-13] MEDS ORDERED: SUCCINYLCHOLINE CHLORIDE 20 MG/ML 10 ML VIAL ONE (06:32)
[2021-12-13] MEDS ORDERED: PROPOFOL 10 MG/ML 20ML VIAL IV ONE (06:33)
[2021-12-13] MEDS ORDERED: GLYCOPYRROLATE 1 MG/5 ML SYRINGE ONE (06:33)
[2021-12-13] MEDS ORDERED: ROCURONIUM 10MG/1ML SYR 10 MG/ML ML ONE (06:33)
[2021-12-13] MEDS ORDERED: ONDANSETRON 4MG INJ ONE (06:33)
[2021-12-13] MEDS ORDERED: NEOSTIGMINE 5MG/5ML SYR IV ONE (06:33)
[2021-12-13] MEDS ORDERED: PHENYLEPHRINE HCL 10 MG/ML 1ML VIAL IV ONE ×3 (06:34→06:55)
[2021-12-13] MEDS ORDERED: LIDOCAINE HCL-MPF 2% 10ML AMP IJ ONE (06:34)
[2021-12-13] MEDS ORDERED: FENTANYL CITRATE PF 50 MCG/1 ML 2ML VIAL ONE (06:34)
[2021-12-13] MEDS ORDERED: AMIODARONE 150MG VIAL ONE (07:11)
[2021-12-13] MEDS ORDERED: NOREPINEPHRINE BITARTRATE 1 MG/1 ML ML IV ONE (07:15)
[2021-12-13 07:36] LABS: EOSINOPHILS % (MANUAL) 3 % (1-6); LYMPHOCYTES % (MANUAL) 22 % (22-44); MAN.DIFF COMMENT-IMPRESSION MANUAL DIFFERENTIAL; MONOCYTES % (MANUAL) 5 % (2-9); PLATELET MORPHOLOGY COMMENT ADEQUATE; SEGMENTED NEUTROPHILS % 70 % (40-70)
[2021-12-13] MEDS ORDERED: SUGAMMADEX SODIUM 200 MG/2 ML VIAL IV ONE (08:08)
[2021-12-13] MEDS ORDERED: VASOPRESSIN 20 UNITS/ML 1ML VIAL IVP ONE (09:00)
[2021-12-13] MEDS: ZOSYN 3.375GM +NS 50ML IV SCH ×2 (09:00→20:52)
[2021-12-13] MEDS: CLOPIDOGREL 75MG TAB PO SCH (09:00)
[2021-12-13] MEDS: ASPIRIN 81MG CHEW TAB PO SCH (09:00)
[2021-12-13] MEDS: AMIODARONE 200 MG TABLET PO SCH (09:00)
[2021-12-13] MEDS: CARVEDILOL 3.125 MG TABLET PO SCH ×2 (09:00→20:52)
[2021-12-13 09:16] LABS: ABG BASE EXCESS -3.3 mmol/L (-2.0-3.0); ABG HCO3 21.9 mmol/L (21.0-28.0); ABG OXYGEN SATURATION 99.4 % (95.0-99.0); ABG PCO2 40 mmHg (32-45)
[2021-12-13] MEDS ORDERED: NOREPINEPHRIN 4MG/NS 250ML 250 ML IV SCH (10:30)
[2021-12-13] MEDS ORDERED: NOREPINEPHRIN 4MG/NS 250ML 250 ML IV ONE (10:34)
[2021-12-13] MEDS: ONDANSETRON 4MG INJ IVP PRN (11:20)
[2021-12-13] MEDS: ACETAMINOPHEN 325 MG TAB PO PRN (13:34)
[2021-12-13] MEDS: SERTRALINE HCL 50 MG TABLET PO SCH (15:20)
[2021-12-13] MEDS: ATORVASTATIN 20 MG TABLET PO SCH (20:52)
[2021-12-13] MEDS: VANCOMYCIN 750MG VIAL IVPB SCH (20:52)
[2021-12-13] MEDS: HEPARIN 5,000 UNIT VIAL IJ SCH (21:32)
[2021-12-13] MEDS: HYDROMORPHONE 0.5 MG SYG (0.5MG/0.5ML) IVP PRN (22:35)
[2021-12-14] VITALS (11 sets, daily range): BP systolic 108–150; BP diastolic 22–69
[2021-12-14 03:38] LABS: HEMATOCRIT 25.2 % (36-48); MEAN CORPUSCULAR HEMOGLOBIN 31.9 pg (27.0-33.0); MEAN CORPUSCULAR HGB CONC 31.3 g/dL (32.0-36.0); MEAN CORPUSCULAR VOLUME 101.6 fL (79-99); PLATELET COUNT (AUTO) 97 K/uL (130-400); RED BLOOD CELL COUNT(AUTO) 2.48 MIL/uL (4.00-5.50); RED CELL DISTRIBUTION WIDTH 18.5 % (11.0-15.5); WHITE BLOOD COUNT (AUTO) 9.5 K/uL (4.8-10.8)
[2021-12-14 04:09] LABS: ALBUMIN 2.4 g/dL (3.5-5.0); CREATININE 3.5 mg/dL (0.5-1.5); MAGNESIUM 1.8 mg/dL (1.80-2.40); PHOSPHORUS 3.7 mg/dL (2.5-4.9); POTASSIUM 3.5 mmol/L (3.5-5.1); TOTAL PROTEIN, SERUM 5.9 g/dL (6.0-8.3)
[2021-12-14] MEDS: HYDROMORPHONE 0.5 MG SYG (0.5MG/0.5ML) IVP PRN ×2 (05:18→13:05)
[2021-12-14] MEDS ORDERED: MAGNESIUM 2GM PREMIX 50ML 50 ML IV SCH (06:00)
[2021-12-14 06:28] LABS: BAND NEUTROPHILS % (MANUAL) 5 % (0-2); EOSINOPHILS % (MANUAL) 1 % (1-6); LYMPHOCYTES % (MANUAL) 11 % (22-44); MONOCYTES % (MANUAL) 5 % (2-9); REACTIVE LYMPHOCYTES 1 % (0-0); SEGMENTED NEUTROPHILS % 77 % (40-70)
[2021-12-14 06:29] LABS: MAN.DIFF COMMENT-IMPRESSION MANUAL DIFFERENTIAL; PLATELET MORPHOLOGY COMMENT DECREASED
[2021-12-14] MEDS: INSULIN HUMULIN R 100 UNIT/ML 3ML SQ SCH ×4 (06:44→20:16)
[2021-12-14] MEDS: ONDANSETRON 4MG INJ IVP PRN (08:02)
[2021-12-14] MEDS: ZOSYN 3.375GM +NS 50ML IV SCH ×2 (08:03→20:17)
[2021-12-14] MEDS: SERTRALINE HCL 50 MG TABLET PO SCH ×2 (09:00→09:03)
[2021-12-14] MEDS: AMIODARONE 200 MG TABLET PO SCH (09:03)
[2021-12-14] MEDS: FAMOTIDINE 20MG TAB PO SCH (09:03)
[2021-12-14] MEDS: ASPIRIN 81MG CHEW TAB PO SCH (09:03)
[2021-12-14] MEDS: CARVEDILOL 3.125 MG TABLET PO SCH ×2 (09:03→20:22)
[2021-12-14] MEDS: CLOPIDOGREL 75MG TAB PO SCH (09:03)
[2021-12-14] MEDS: HEPARIN 5,000 UNIT VIAL IJ SCH (15:00)
[2021-12-14] MEDS: ATORVASTATIN 20 MG TABLET PO SCH (20:22)
[2021-12-15] VITALS (21 sets, daily range): BP systolic 100–145; BP diastolic 30–68
[2021-12-15] MEDS: HYDROMORPHONE 0.5 MG SYG (0.5MG/0.5ML) IVP PRN ×2 (00:45→09:50)
[2021-12-15 05:53] LABS: HEMATOCRIT 25.2 % (36-48); MEAN CORPUSCULAR HEMOGLOBIN 32.4 pg (27.0-33.0); MEAN CORPUSCULAR HGB CONC 31.7 g/dL (32.0-36.0); PLATELET COUNT (AUTO) 99 K/uL (130-400); RED BLOOD CELL COUNT(AUTO) 2.47 MIL/uL (4.00-5.50); RED CELL DISTRIBUTION WIDTH 18.5 % (11.0-15.5); WHITE BLOOD COUNT (AUTO) 13.1 K/uL (4.8-10.8)
[2021-12-15 06:10] LABS: ALBUMIN 2.4 g/dL (3.5-5.0); CREATININE 4.7 mg/dL (0.5-1.5); PHOSPHORUS 4.9 mg/dL (2.5-4.9); POTASSIUM 3.5 mmol/L (3.5-5.1); TOTAL PROTEIN, SERUM 6.2 g/dL (6.0-8.3)
[2021-12-15 06:25] LABS: BASOPHILS % (MANUAL) 2 % (0-2); EOSINOPHILS % (MANUAL) 1 % (1-6); LYMPHOCYTES % (MANUAL) 13 % (22-44); MAN.DIFF COMMENT-IMPRESSION MANUAL DIFFERENTIAL; MONOCYTES % (MANUAL) 14 % (2-9); SEGMENTED NEUTROPHILS % 70 % (40-70)
[2021-12-15] MEDS: INSULIN HUMULIN R 100 UNIT/ML 3ML SQ SCH ×4 (06:37→20:47)
[2021-12-15] MEDS: CLOPIDOGREL 75MG TAB PO SCH (09:00)
[2021-12-15] MEDS: CARVEDILOL 3.125 MG TABLET PO SCH ×2 (09:00→20:51)
[2021-12-15] MEDS: ASPIRIN 81MG CHEW TAB PO SCH (09:00)
[2021-12-15] MEDS: ACETAMINOPHEN 325 MG TAB PO PRN (09:07)
[2021-12-15] MEDS: SERTRALINE HCL 50 MG TABLET PO SCH (09:09)
[2021-12-15] MEDS: FAMOTIDINE 20MG TAB PO SCH (09:09)
[2021-12-15] MEDS: AMIODARONE 200 MG TABLET PO SCH (09:09)
[2021-12-15] MEDS: ZOSYN 3.375GM +NS 50ML IV SCH ×2 (09:49→20:48)
[2021-12-15] MEDS: IPRATROPIUM 0.5 MG/2.5 ML INH IH SCH ×2 (13:29→17:11)
[2021-12-15] MEDS ORDERED: HYDROMORPHONE 0.5 MG SYG (0.5MG/0.5ML) IVP PRN (14:30)
[2021-12-15] MEDS: HEPARIN 5,000 UNIT VIAL IJ SCH (15:00)
[2021-12-15] MEDS ORDERED: MIDODRINE HCL 5 MG TABLET PO SCH (15:30)
[2021-12-15] MEDS: VANCOMYCIN 750MG VIAL IVPB SCH (18:44)
[2021-12-15] MEDS: HYDROCODONE/ACETAMINOPHEN 5/325 MG TAB PO PRN (19:03)
[2021-12-15] MEDS: DOCUSATE SODIUM 100 MG CAP PO SCH (20:48)
[2021-12-15] MEDS: GABAPENTIN 100 MG CAPSULE PO SCH (20:49)
[2021-12-15] MEDS: ATORVASTATIN 20 MG TABLET PO SCH (20:49)
[2021-12-16] MEDS: IPRATROPIUM 0.5 MG/2.5 ML INH IH SCH ×4 (00:25→18:00)
[2021-12-16 03:48] VITALS: BP 116/56
[2021-12-16 06:02] LABS: HEMATOCRIT 26.5 % (36-48); MEAN CORPUSCULAR HEMOGLOBIN 32.4 pg (27.0-33.0); MEAN CORPUSCULAR HGB CONC 31.7 g/dL (32.0-36.0); MEAN CORPUSCULAR VOLUME 102.3 fL (79-99); PLATELET COUNT (AUTO) 111 K/uL (130-400); RED BLOOD CELL COUNT(AUTO) 2.59 MIL/uL (4.00-5.50); RED CELL DISTRIBUTION WIDTH 18.6 % (11.0-15.5); WHITE BLOOD COUNT (AUTO) 11.8 K/uL (4.8-10.8)
[2021-12-16 06:15] LABS: ALBUMIN 2.2 g/dL (3.5-5.0); CREATININE 3.2 mg/dL (0.5-1.5); MAGNESIUM 2.2 mg/dL (1.80-2.40); PHOSPHORUS 2.9 mg/dL (2.5-4.9); POTASSIUM 3.4 mmol/L (3.5-5.1); TOTAL PROTEIN, SERUM 6.1 g/dL (6.0-8.3)
[2021-12-16] MEDS: INSULIN HUMULIN R 100 UNIT/ML 3ML SQ SCH ×4 (06:38→21:00)
[2021-12-16 07:25] VITALS: BP 104/22
[2021-12-16] MEDS: ZOSYN 3.375GM +NS 50ML IV SCH ×2 (08:36→20:55)
[2021-12-16] MEDS: SERTRALINE HCL 50 MG TABLET PO SCH (08:37)
[2021-12-16] MEDS: DOCUSATE SODIUM 100 MG CAP PO SCH ×2 (08:39→20:56)
[2021-12-16] MEDS: GABAPENTIN 100 MG CAPSULE PO SCH ×2 (08:40→20:56)
[2021-12-16] MEDS: FAMOTIDINE 20MG TAB PO SCH (08:40)
[2021-12-16] MEDS: ASPIRIN 81MG CHEW TAB PO SCH (08:40)
[2021-12-16] MEDS: AMIODARONE 200 MG TABLET PO SCH (08:41)
[2021-12-16] MEDS: CLOPIDOGREL 75MG TAB PO SCH (08:41)
[2021-12-16] MEDS: CARVEDILOL 3.125 MG TABLET PO SCH ×2 (08:42→20:57)
[2021-12-16 09:37] LABS: LYMPHOCYTES % (MANUAL) 12 % (22-44); MAN.DIFF COMMENT-IMPRESSION MANUAL DIFFERENTIAL; MONOCYTES % (MANUAL) 8 % (2-9); SEGMENTED NEUTROPHILS % 80 % (40-70)
[2021-12-16 09:38] LABS: PLATELET MORPHOLOGY COMMENT MARKED DECREASE
[2021-12-16 11:05] VITALS: BP 127/65
[2021-12-16] MEDS: HEPARIN 5,000 UNIT VIAL IJ SCH (14:10)
[2021-12-16 15:10] VITALS: BP 102/54
[2021-12-16 20:21] VITALS: BP 121/59
[2021-12-16] MEDS: ATORVASTATIN 20 MG TABLET PO SCH (20:56)
[2021-12-16 23:43] VITALS: BP 118/54
[2021-12-17] VITALS (13 sets, daily range): BP systolic 73–126; BP diastolic 32–69
[2021-12-17] MEDS: IPRATROPIUM 0.5 MG/2.5 ML INH IH SCH
[2021-12-17 05:55] LABS: HEMATOCRIT 26.6 % (36-48); MEAN CORPUSCULAR HEMOGLOBIN 32.2 pg (27.0-33.0); MEAN CORPUSCULAR HGB CONC 31.6 g/dL (32.0-36.0); MEAN CORPUSCULAR VOLUME 101.9 fL (79-99); PLATELET COUNT (AUTO) 109 K/uL (130-400); RED BLOOD CELL COUNT(AUTO) 2.61 MIL/uL (4.00-5.50); RED CELL DISTRIBUTION WIDTH 18.6 % (11.0-15.5); WHITE BLOOD COUNT (AUTO) 9.7 K/uL (4.8-10.8)
[2021-12-17 06:11] LABS: CREATININE 4.5 mg/dL (0.5-1.5); POTASSIUM 3.3 mmol/L (3.5-5.1)
[2021-12-17] MEDS ORDERED: IPRATROPIUM 0.5 MG/2.5 ML INH IH PRN (06:30)
[2021-12-17] MEDS: INSULIN HUMULIN R 100 UNIT/ML 3ML SQ SCH ×4 (06:53→20:49)
[2021-12-17 08:38] LABS: LYMPHOCYTES % (MANUAL) 12 % (22-44); MONOCYTES % (MANUAL) 12 % (2-9); SEGMENTED NEUTROPHILS % 76 % (40-70)
[2021-12-17 08:39] LABS: MAN.DIFF COMMENT-IMPRESSION MANUAL DIFFERENTIAL; PLATELET MORPHOLOGY COMMENT SLIGHTLY DECREASED
[2021-12-17] MEDS: DOCUSATE SODIUM 100 MG CAP PO SCH ×3 (09:00→20:57)
[2021-12-17] MEDS: GABAPENTIN 100 MG CAPSULE PO SCH ×2 (09:58→20:57)
[2021-12-17] MEDS: ZOSYN 3.375GM +NS 50ML IV SCH ×2 (09:58→20:57)
[2021-12-17] MEDS: CLOPIDOGREL 75MG TAB PO SCH (09:59)
[2021-12-17] MEDS: FAMOTIDINE 20MG TAB PO SCH (10:00)
[2021-12-17] MEDS: SERTRALINE HCL 50 MG TABLET PO SCH (10:00)
[2021-12-17] MEDS: AMIODARONE 200 MG TABLET PO SCH (10:00)
[2021-12-17] MEDS: ASPIRIN 81MG CHEW TAB PO SCH (10:01)
[2021-12-17] MEDS: CARVEDILOL 3.125 MG TABLET PO SCH ×2 (10:07→20:49)
[2021-12-17] MEDS: HEPARIN 5,000 UNIT VIAL IJ SCH (15:00)
[2021-12-17] MEDS ORDERED: MIDODRINE HCL 5 MG TABLET ONE (16:48)
[2021-12-17] MEDS: ACETAMINOPHEN 325 MG TAB PO PRN (16:55)
[2021-12-17] MEDS ORDERED: MIDODRINE HCL 5 MG TABLET PO SCH (17:00)
[2021-12-17] MEDS: MIDODRINE HCL 5 MG TABLET PO SCH (20:57)
[2021-12-17] MEDS: ATORVASTATIN 20 MG TABLET PO SCH (20:57)
[2021-12-18] VITALS (24 sets, daily range): BP systolic 94–139; BP diastolic 23–91
[2021-12-18 03:52] LABS: HEMATOCRIT 26.8 % (36-48); MEAN CORPUSCULAR HEMOGLOBIN 31.5 pg (27.0-33.0); MEAN CORPUSCULAR HGB CONC 31.3 g/dL (32.0-36.0); MEAN CORPUSCULAR VOLUME 100.4 fL (79-99); RED BLOOD CELL COUNT(AUTO) 2.67 MIL/uL (4.00-5.50); RED CELL DISTRIBUTION WIDTH 18.3 % (11.0-15.5); WHITE BLOOD COUNT (AUTO) 10.5 K/uL (4.8-10.8)
[2021-12-18 04:04] LABS: CREATININE 5.5 mg/dL (0.5-1.5); POTASSIUM 3.3 mmol/L (3.5-5.1)
[2021-12-18] MEDS: INSULIN HUMULIN R 100 UNIT/ML 3ML SQ SCH ×3 (05:34→20:11)
[2021-12-18] MEDS: MIDODRINE HCL 5 MG TABLET PO SCH ×3 (08:39→20:14)
[2021-12-18] MEDS: AMIODARONE 200 MG TABLET PO SCH (08:39)
[2021-12-18] MEDS: GABAPENTIN 100 MG CAPSULE PO SCH ×2 (08:39→20:14)
[2021-12-18] MEDS: CLOPIDOGREL 75MG TAB PO SCH (08:39)
[2021-12-18] MEDS: SERTRALINE HCL 50 MG TABLET PO SCH (08:39)
[2021-12-18] MEDS: DOCUSATE SODIUM 100 MG CAP PO SCH ×2 (08:39→20:13)
[2021-12-18] MEDS: ASPIRIN 81MG CHEW TAB PO SCH (08:39)
[2021-12-18] MEDS: FAMOTIDINE 20MG TAB PO SCH (08:39)
[2021-12-18] MEDS: ZOSYN 3.375GM +NS 50ML IV SCH ×2 (08:40→20:12)
[2021-12-18] MEDS: CARVEDILOL 3.125 MG TABLET PO SCH ×2 (09:00→20:13)
[2021-12-18] MEDS ORDERED: EPOETIN ALFA-EPBX (NON-ESRD) 10,000 UNIT/ML VIAL IV SCH (12:30)
[2021-12-18] MEDS: HEPARIN 5,000 UNIT VIAL IJ SCH (14:24)
[2021-12-18] MEDS: ATORVASTATIN 20 MG TABLET PO SCH (20:14)
[2021-12-19] VITALS: BP 124/40
[2021-12-19 05:08] LABS: HEMATOCRIT 28.7 % (36-48); MEAN CORPUSCULAR HEMOGLOBIN 31.6 pg (27.0-33.0); MEAN CORPUSCULAR VOLUME 101.8 fL (79-99); NUCLEATED RED BLOOD CELLS 0.6 % (0.0-0.19); RED BLOOD CELL COUNT(AUTO) 2.82 MIL/uL (4.00-5.50); RED CELL DISTRIBUTION WIDTH 18.3 % (11.0-15.5); WHITE BLOOD COUNT (AUTO) 10.2 K/uL (4.8-10.8)
[2021-12-19 05:24] LABS: CREATININE 3.9 mg/dL (0.5-1.5); MAGNESIUM 2.1 mg/dL (1.80-2.40); POTASSIUM 3.5 mmol/L (3.5-5.1)
[2021-12-19 05:46] VITALS: BP 104/31
[2021-12-19] MEDS: INSULIN HUMULIN R 100 UNIT/ML 3ML SQ SCH ×4 (06:36→21:00)
[2021-12-19] MEDS: MIDODRINE HCL 5 MG TABLET PO SCH ×3 (07:59→22:33)
[2021-12-19 08:00] VITALS: BP 126/27
[2021-12-19] MEDS: CLOPIDOGREL 75MG TAB PO SCH (08:22)
[2021-12-19] MEDS: DOCUSATE SODIUM 100 MG CAP PO SCH ×2 (08:22→21:00)
[2021-12-19] MEDS: FAMOTIDINE 20MG TAB PO SCH (08:23)
[2021-12-19] MEDS: ASPIRIN 81MG CHEW TAB PO SCH (08:23)
[2021-12-19] MEDS: GABAPENTIN 100 MG CAPSULE PO SCH ×2 (08:23→22:33)
[2021-12-19] MEDS: SERTRALINE HCL 50 MG TABLET PO SCH (08:23)
[2021-12-19] MEDS: CARVEDILOL 3.125 MG TABLET PO SCH ×2 (11:57→22:34)
[2021-12-19] MEDS: AMIODARONE 200 MG TABLET PO SCH (11:57)
[2021-12-19 12:00] VITALS: BP 134/32
[2021-12-19] MEDS: HEPARIN 5,000 UNIT VIAL IJ SCH (15:00)
[2021-12-19 16:00] VITALS: BP 120/46
[2021-12-19 20:00] VITALS: BP 111/39
[2021-12-19] MEDS: ATORVASTATIN 20 MG TABLET PO SCH (22:33)
[2021-12-20] VITALS (20 sets, daily range): BP systolic 108–144; BP diastolic 26–51
[2021-12-20 05:31] LABS: HEMATOCRIT 26.9 % (36-48); MEAN CORPUSCULAR HEMOGLOBIN 31.8 pg (27.0-33.0); MEAN CORPUSCULAR HGB CONC 31.2 g/dL (32.0-36.0); MEAN CORPUSCULAR VOLUME 101.9 fL (79-99); NUCLEATED RED BLOOD CELLS 0.3 % (0.0-0.19); PLATELET COUNT (AUTO) 169 K/uL (130-400); RED BLOOD CELL COUNT(AUTO) 2.64 MIL/uL (4.00-5.50); RED CELL DISTRIBUTION WIDTH 18.4 % (11.0-15.5); WHITE BLOOD COUNT (AUTO) 9.7 K/uL (4.8-10.8)
[2021-12-20 05:44] LABS: CREATININE 5.3 mg/dL (0.5-1.5); PHOSPHORUS 3.2 mg/dL (2.5-4.9); POTASSIUM 3.3 mmol/L (3.5-5.1)
[2021-12-20 06:44] LABS: BASOPHILS % (MANUAL) 2 % (0-2); EOSINOPHILS % (MANUAL) 2 % (1-6); LYMPHOCYTES % (MANUAL) 14 % (22-44); MAN.DIFF COMMENT-IMPRESSION MANUAL DIFFERENTIAL; MONOCYTES % (MANUAL) 12 % (2-9); PLATELET MORPHOLOGY COMMENT ADEQUATE; SEGMENTED NEUTROPHILS % 70 % (40-70)
[2021-12-20] MEDS: INSULIN HUMULIN R 100 UNIT/ML 3ML SQ SCH ×4 (06:49→21:00)
[2021-12-20] MEDS ORDERED: EPOETIN ALFA-EPBX (NON-ESRD) 10,000 UNIT/ML VIAL SQ SCH (09:00)
[2021-12-20] MEDS: DOCUSATE SODIUM 100 MG CAP PO SCH ×2 (09:04→21:00)
[2021-12-20] MEDS: FAMOTIDINE 20MG TAB PO SCH (09:05)
[2021-12-20] MEDS: ASPIRIN 81MG CHEW TAB PO SCH (09:05)
[2021-12-20] MEDS: CLOPIDOGREL 75MG TAB PO SCH (09:05)
[2021-12-20] MEDS: SERTRALINE HCL 50 MG TABLET PO SCH (09:05)
[2021-12-20] MEDS: MIDODRINE HCL 5 MG TABLET PO SCH ×3 (09:06→21:30)
[2021-12-20] MEDS: GABAPENTIN 100 MG CAPSULE PO SCH ×2 (09:06→21:31)
[2021-12-20] MEDS: AMIODARONE 200 MG TABLET PO SCH (12:45)
[2021-12-20] MEDS: CARVEDILOL 3.125 MG TABLET PO SCH ×2 (12:46→21:00)
[2021-12-20] MEDS: HEPARIN 5,000 UNIT VIAL IJ SCH (12:48)
[2021-12-20] MEDS: HYDROCODONE/ACETAMINOPHEN 5/325 MG TAB PO PRN (12:56)
[2021-12-20] MEDS: ATORVASTATIN 20 MG TABLET PO SCH (21:31)
[2021-12-21] VITALS: BP 137/38
[2021-12-21 04:00] VITALS: BP 126/27
[2021-12-21] MEDS: INSULIN HUMULIN R 100 UNIT/ML 3ML SQ SCH ×4 (07:30→20:59)
[2021-12-21 08:00] VITALS: BP 124/22
[2021-12-21] MEDS: CARVEDILOL 3.125 MG TABLET PO SCH (09:00)
[2021-12-21] MEDS: DOCUSATE SODIUM 100 MG CAP PO SCH ×2 (09:50→20:58)
[2021-12-21] MEDS: GABAPENTIN 100 MG CAPSULE PO SCH ×2 (09:51→20:57)
[2021-12-21] MEDS: FAMOTIDINE 20MG TAB PO SCH (09:51)
[2021-12-21] MEDS: SERTRALINE HCL 50 MG TABLET PO SCH (09:51)
[2021-12-21] MEDS: AMIODARONE 200 MG TABLET PO SCH (09:51)
[2021-12-21] MEDS: MIDODRINE HCL 5 MG TABLET PO SCH ×3 (09:52→20:57)
[2021-12-21] MEDS: CLOPIDOGREL 75MG TAB PO SCH (09:52)
[2021-12-21] MEDS: ASPIRIN 81MG CHEW TAB PO SCH (09:52)
[2021-12-21 12:00] VITALS: BP 111/20
[2021-12-21] MEDS: HEPARIN 5,000 UNIT VIAL IJ SCH (15:00)
[2021-12-21] MEDS ORDERED: CARV3.1262 PO (15:00)
[2021-12-21] MEDS ORDERED: SERT50TA PO (15:00)
[2021-12-21] MEDS ORDERED: Midodrine Hcl PO (15:00)
[2021-12-21 16:00] VITALS: BP 111/30
[2021-12-21] MEDS: ATORVASTATIN 20 MG TABLET PO SCH (20:57)
== END 2021-12-21 21:42 | DRG 270 ==
LOC: EDH 18:35 → EDHIP 21:30 → 3DH 12-05 14:20 → 2BH 12-13 10:00 → 3AH 12-14 09:59 → 2BH 12-17 17:43 → 3DH 12-18 15:33
PROVIDERS: ADMIT Internal Medicine Nephrology; ATTEND Internal Medicine Nephrology
PROC: 5A1D70Z Performance of Urinary Filtration, Intermittent, Less than 6 Hours Per Day (ICD-10-PCS; 2021-12-06)
PROC: B410YZZ Fluoroscopy of Abdominal Aorta using Other Contrast (ICD-10-PCS; principal; 2021-12-07)
PROC: 047K3Z1 Dilation of Right Femoral Artery using Drug-Coated Balloon, Percutaneous Approach (ICD-10-PCS; 2021-12-07)
PROC: 04FK3ZZ Fragmentation of Right Femoral Artery, Percutaneous Approach (ICD-10-PCS; 2021-12-07)
PROC: B41FYZZ Fluoroscopy of Right Lower Extremity Arteries using Other Contrast (ICD-10-PCS; 2021-12-07)
PROC: 04CK3ZZ Extirpation of Matter from Right Femoral Artery, Percutaneous Approach (ICD-10-PCS; 2021-12-07)
PROC: 5A1D70Z Performance of Urinary Filtration, Intermittent, Less than 6 Hours Per Day (ICD-10-PCS; 2021-12-08)
PROC: 5A1D70Z Performance of Urinary Filtration, Intermittent, Less than 6 Hours Per Day (ICD-10-PCS; 2021-12-11)
PROC: 5A1D70Z Performance of Urinary Filtration, Intermittent, Less than 6 Hours Per Day (ICD-10-PCS; 2021-12-13)
PROC: 0Y6H0Z1 Detachment at Right Lower Leg, High, Open Approach (ICD-10-PCS; 2021-12-14)
PROC: 5A1D70Z Performance of Urinary Filtration, Intermittent, Less than 6 Hours Per Day (ICD-10-PCS; 2021-12-15)
PROC: 5A1D70Z Performance of Urinary Filtration, Intermittent, Less than 6 Hours Per Day (ICD-10-PCS; 2021-12-18)
PROC: 5A1D70Z Performance of Urinary Filtration, Intermittent, Less than 6 Hours Per Day (ICD-10-PCS; 2021-12-20)
DX: E11.52 Type 2 diabetes mellitus with diabetic peripheral angiopathy with gangrene (principal); N18.6 End stage renal disease; I12.0 Hypertensive chronic kidney disease with stage 5 chronic kidney disease or end stage renal disease; M86.679 Other chronic osteomyelitis, unspecified ankle and foot; L03.115 Cellulitis of right lower limb; Z20.822 Contact with and (suspected) exposure to COVID-19; E11.69 Type 2 diabetes mellitus with other specified complication; E11.65 Type 2 diabetes mellitus with hyperglycemia; E11.621 Type 2 diabetes mellitus with foot ulcer; I25.5 Ischemic cardiomyopathy; I48.0 Paroxysmal atrial fibrillation; D64.9 Anemia, unspecified; D69.6 Thrombocytopenia, unspecified; E11.22 Type 2 diabetes mellitus with diabetic chronic kidney disease; E11.42 Type 2 diabetes mellitus with diabetic polyneuropathy; E78.00 Pure hypercholesterolemia, unspecified; I25.10 Atherosclerotic heart disease of native coronary artery without angina pectoris; Z99.2 Dependence on renal dialysis; Z95.1 Presence of aortocoronary bypass graft; Z89.512 Acquired absence of left leg below knee; Z88.2 Allergy status to sulfonamides; Z79.01 Long term (current) use of anticoagulants
CPT/HCPCS: 36247; 36415; 36600; 71045; 73620; 73721; 75635; 75710; 75716; 80048; 80053; 80202; 82435; 82803; 82947; 82948; 83605; 83735; 84100; 84132; 84295; 85018; 85025; 85027; 85347; 85610; 85651; 85730; 86704; 86706; 87040; 87070; 87076; 87077; 87186; 87340; 87635; 90935; 93005; 93306; 93356; 93923; 93971; 94640; 94660; 94664; 97039; 99156; 99157; C1724; C1769; C1893; C1894; C9766; C9767; G0378; J0282; J0330; J1100; J1170; J1644; J1815; J2250; J2370; J2405; J2543; J2704; J2710; J3010; J3370; J3475; J3490; J7040; J7050; J7070; Q9967

== ENCOUNTER → 2022-04-01 | Outpatient (CLI) | payer MEDICARE ==
[~2022-04-01] MED LIST changes: -AMLO-257 PO; -GLIP10TA9 PO; +LIDOCAINE HCL 4% LTA SOL 4 ML VIAL TP ONE; -LOSA50TA64 PO; -MIDO5TAB4 PO; +Midodrine Hcl PO; +SERT50TA PO
== END | disposition home or self-care (01) ==
LOC: WHH 08:20
PROVIDERS: ATTEND Family Medicine
DX: T87.81 Dehiscence of amputation stump (principal); S81.801A Unspecified open wound, right lower leg, initial encounter; E11.65 Type 2 diabetes mellitus with hyperglycemia; E11.22 Type 2 diabetes mellitus with diabetic chronic kidney disease; I13.2 Hypertensive heart and chronic kidney disease with heart failure and with stage 5 chronic kidney disease, or end stage renal disease; I50.22 Chronic systolic (congestive) heart failure; N18.6 End stage renal disease; E11.51 Type 2 diabetes mellitus with diabetic peripheral angiopathy without gangrene; I25.10 Atherosclerotic heart disease of native coronary artery without angina pectoris; I48.0 Paroxysmal atrial fibrillation; E78.5 Hyperlipidemia, unspecified; I25.2 Old myocardial infarction; E66.01 Morbid (severe) obesity due to excess calories; Z68.29 Body mass index [BMI] 29.0-29.9, adult; Z79.82 Long term (current) use of aspirin; Z79.01 Long term (current) use of anticoagulants; Z79.899 Other long term (current) drug therapy; Z87.891 Personal history of nicotine dependence; Z90.49 Acquired absence of other specified parts of digestive tract; Z99.2 Dependence on renal dialysis; Z89.512 Acquired absence of left leg below knee; Z98.41 Cataract extraction status, right eye; Z98.42 Cataract extraction status, left eye; Z79.84 Long term (current) use of oral hypoglycemic drugs; Z95.1 Presence of aortocoronary bypass graft; Y83.5 Amputation of limb(s) as the cause of abnormal reaction of the patient, or of later complication, without mention of misadventure at the time of the procedure; X58.XXXA Exposure to other specified factors, initial encounter; Y93.89 Activity, other specified; Y92.238 Other place in hospital as the place of occurrence of the external cause; Y99.8 Other external cause status
CPT/HCPCS: 11042; 11045; A4450

== ENCOUNTER → 2022-04-08 | Outpatient (CLI) | payer MEDICARE | END | disposition home or self-care (01) | LOC: WHH 08:44 | PROVIDERS: ATTEND Family Medicine | DX: T87.81 Dehiscence of amputation stump (principal); S81.801D Unspecified open wound, right lower leg, subsequent encounter; E11.22 Type 2 diabetes mellitus with diabetic chronic kidney disease; I13.2 Hypertensive heart and chronic kidney disease with heart failure and with stage 5 chronic kidney disease, or end stage renal disease; I50.22 Chronic systolic (congestive) heart failure; N18.6 End stage renal disease; E11.65 Type 2 diabetes mellitus with hyperglycemia; E11.51 Type 2 diabetes mellitus with diabetic peripheral angiopathy without gangrene; I25.10 Atherosclerotic heart disease of native coronary artery without angina pectoris; I48.0 Paroxysmal atrial fibrillation; E78.5 Hyperlipidemia, unspecified; I25.2 Old myocardial infarction; E66.01 Morbid (severe) obesity due to excess calories; Z79.82 Long term (current) use of aspirin; Z79.01 Long term (current) use of anticoagulants; Z87.891 Personal history of nicotine dependence; Z79.899 Other long term (current) drug therapy; Z90.49 Acquired absence of other specified parts of digestive tract; Z99.2 Dependence on renal dialysis; Z89.512 Acquired absence of left leg below knee; Z98.41 Cataract extraction status, right eye; Z98.42 Cataract extraction status, left eye; Z79.84 Long term (current) use of oral hypoglycemic drugs; Z95.1 Presence of aortocoronary bypass graft; X58.XXXD Exposure to other specified factors, subsequent encounter; Y83.5 Amputation of limb(s) as the cause of abnormal reaction of the patient, or of later complication, without mention of misadventure at the time of the procedure | CPT/HCPCS: 11042; 11045 ==

== ENCOUNTER → 2022-04-15 | Outpatient (CLI) | payer MEDICARE | END | disposition home or self-care (01) | LOC: WHH 09:38 | PROVIDERS: ATTEND Family Medicine | DX: T87.81 Dehiscence of amputation stump (principal); S81.801D Unspecified open wound, right lower leg, subsequent encounter; E11.65 Type 2 diabetes mellitus with hyperglycemia; E11.22 Type 2 diabetes mellitus with diabetic chronic kidney disease; I13.2 Hypertensive heart and chronic kidney disease with heart failure and with stage 5 chronic kidney disease, or end stage renal disease; I50.22 Chronic systolic (congestive) heart failure; N18.6 End stage renal disease; E11.51 Type 2 diabetes mellitus with diabetic peripheral angiopathy without gangrene; I25.10 Atherosclerotic heart disease of native coronary artery without angina pectoris; I48.0 Paroxysmal atrial fibrillation; E78.5 Hyperlipidemia, unspecified; I25.2 Old myocardial infarction; E66.01 Morbid (severe) obesity due to excess calories; Z68.30 Body mass index [BMI] 30.0-30.9, adult; Z79.82 Long term (current) use of aspirin; Z79.01 Long term (current) use of anticoagulants; Z79.899 Other long term (current) drug therapy; Z87.891 Personal history of nicotine dependence; Z90.49 Acquired absence of other specified parts of digestive tract; Z99.2 Dependence on renal dialysis; Z89.512 Acquired absence of left leg below knee; Z79.84 Long term (current) use of oral hypoglycemic drugs; Z95.1 Presence of aortocoronary bypass graft; X58.XXXD Exposure to other specified factors, subsequent encounter; Y83.5 Amputation of limb(s) as the cause of abnormal reaction of the patient, or of later complication, without mention of misadventure at the time of the procedure | CPT/HCPCS: 11042 ==

== ENCOUNTER → 2022-04-29 | Outpatient (CLI) | payer MEDICARE | END | disposition home or self-care (01) | LOC: WHH 09:23 | PROVIDERS: ATTEND Family Medicine | DX: T87.81 Dehiscence of amputation stump (principal); S81.801D Unspecified open wound, right lower leg, subsequent encounter; E11.65 Type 2 diabetes mellitus with hyperglycemia; E11.22 Type 2 diabetes mellitus with diabetic chronic kidney disease; I13.2 Hypertensive heart and chronic kidney disease with heart failure and with stage 5 chronic kidney disease, or end stage renal disease; I50.22 Chronic systolic (congestive) heart failure; N18.6 End stage renal disease; E11.51 Type 2 diabetes mellitus with diabetic peripheral angiopathy without gangrene; I25.10 Atherosclerotic heart disease of native coronary artery without angina pectoris; I48.0 Paroxysmal atrial fibrillation; E78.5 Hyperlipidemia, unspecified; I25.2 Old myocardial infarction; E66.01 Morbid (severe) obesity due to excess calories; Z68.30 Body mass index [BMI] 30.0-30.9, adult; Z79.82 Long term (current) use of aspirin; Z79.01 Long term (current) use of anticoagulants; Z79.899 Other long term (current) drug therapy; Z87.891 Personal history of nicotine dependence; Z90.49 Acquired absence of other specified parts of digestive tract; Z99.2 Dependence on renal dialysis; Z89.512 Acquired absence of left leg below knee; Z79.84 Long term (current) use of oral hypoglycemic drugs; Z95.1 Presence of aortocoronary bypass graft; X58.XXXD Exposure to other specified factors, subsequent encounter; Y83.5 Amputation of limb(s) as the cause of abnormal reaction of the patient, or of later complication, without mention of misadventure at the time of the procedure | CPT/HCPCS: 11042; A6209 ==

== ENCOUNTER → 2022-05-27 | Outpatient (CLI) | payer MEDICARE | END | disposition home or self-care (01) | LOC: WHH 09:17 | PROVIDERS: ATTEND Family Medicine | DX: T87.81 Dehiscence of amputation stump (principal); S81.801D Unspecified open wound, right lower leg, subsequent encounter; E11.65 Type 2 diabetes mellitus with hyperglycemia; E11.22 Type 2 diabetes mellitus with diabetic chronic kidney disease; I13.2 Hypertensive heart and chronic kidney disease with heart failure and with stage 5 chronic kidney disease, or end stage renal disease; I50.22 Chronic systolic (congestive) heart failure; N18.6 End stage renal disease; I25.10 Atherosclerotic heart disease of native coronary artery without angina pectoris; E11.51 Type 2 diabetes mellitus with diabetic peripheral angiopathy without gangrene; I48.0 Paroxysmal atrial fibrillation; E78.5 Hyperlipidemia, unspecified; I25.2 Old myocardial infarction; E66.01 Morbid (severe) obesity due to excess calories; Z68.30 Body mass index [BMI] 30.0-30.9, adult; Z79.82 Long term (current) use of aspirin; Z79.01 Long term (current) use of anticoagulants; Z79.899 Other long term (current) drug therapy; Z87.891 Personal history of nicotine dependence; Z90.49 Acquired absence of other specified parts of digestive tract; Z99.2 Dependence on renal dialysis; Z89.512 Acquired absence of left leg below knee; Z79.84 Long term (current) use of oral hypoglycemic drugs; Z95.1 Presence of aortocoronary bypass graft; X58.XXXD Exposure to other specified factors, subsequent encounter; Y83.5 Amputation of limb(s) as the cause of abnormal reaction of the patient, or of later complication, without mention of misadventure at the time of the procedure | CPT/HCPCS: 11042; A6209; A4450 ==

== ENCOUNTER 2022-06-04 09:38 | Emergency (ER) | payer MEDICARE ==
[~2022-06-04] VITALS: Ht 157.5 cm; Wt 69.9 kg
[~2022-06-04 09:38] MED LIST changes: -LIDOCAINE HCL 4% LTA SOL 4 ML VIAL TP ONE
[2022-06-04 09:43] VITALS: BP 171/48
[2022-06-04 10:20] LABS: HEMATOCRIT 30.6 % (36-48); MEAN CORPUSCULAR HEMOGLOBIN 29.6 pg (27.0-33.0); MEAN CORPUSCULAR HGB CONC 31.4 g/dL (32.0-36.0); MEAN CORPUSCULAR VOLUME 94.4 fL (79-99); NUCLEATED RED BLOOD CELLS 0.3 % (0.0-0.19); RED BLOOD CELL COUNT(AUTO) 3.24 MIL/uL (4.00-5.50); RED CELL DISTRIBUTION WIDTH 17.6 % (11.0-15.5)
[2022-06-04 10:47] LABS: ALBUMIN 2.9 g/dL (3.5-5.0); CREATININE 2.5 mg/dL (0.5-1.5); POTASSIUM 3.5 mmol/L (3.5-5.1); TOTAL PROTEIN, SERUM 6.2 g/dL (6.0-8.3)
[2022-06-04] MEDS ORDERED: HYDROMORPHONE 0.5 MG SYG (0.5MG/0.5ML) IM ONE ×2 (11:00→13:30)
[2022-06-04] MEDS ORDERED: ONDANSETRON ODT 4MG TAB ONE (15:51)
[2022-06-04] MEDS ORDERED: ONDANSETRON ODT 4MG TAB SL ONE (16:00)
== END 2022-06-04 16:32 | disposition home or self-care (01) ==
LOC: EDH 09:38
DX: M54.9 Dorsalgia, unspecified (principal); I12.0 Hypertensive chronic kidney disease with stage 5 chronic kidney disease or end stage renal disease; N18.6 End stage renal disease; E11.22 Type 2 diabetes mellitus with diabetic chronic kidney disease; E78.00 Pure hypercholesterolemia, unspecified; Z99.2 Dependence on renal dialysis; Z95.1 Presence of aortocoronary bypass graft; Z79.899 Other long term (current) drug therapy; Z98.890 Other specified postprocedural states; Z90.49 Acquired absence of other specified parts of digestive tract; Z88.2 Allergy status to sulfonamides; Z88.5 Allergy status to narcotic agent; Z88.8 Allergy status to other drugs, medicaments and biological substances
CPT/HCPCS: 99285; 71250; 71045; 84484; 80053; 85027; 36415; 96372 ×2; 93005; J1170 ×2

== ENCOUNTER 2022-06-13 09:39 | Inpatient (IN) | payer MEDICARE ==
[~2022-06-13] VITALS: Ht 157.5 cm; Wt 73.3 kg
[2022-06-13] VITALS (20 sets, daily range): BP systolic 91–209; BP diastolic 50–106
[2022-06-13] MEDS ORDERED: LIDOCAINE 5% TOPICAL PATCH TP ONE (10:30)
[2022-06-13 12:01] LABS: CREATININE 4.6 mg/dL (0.5-1.5); POTASSIUM 4.9 mmol/L (3.5-5.1)
[2022-06-13 12:05] LABS: ALBUMIN 3.4 g/dL (3.5-5.0); TOTAL PROTEIN, SERUM 6.9 g/dL (6.0-8.3)
[2022-06-13 12:40] LABS: BASOPHILS % (AUTO) 0.7 % (0.0-5.0); EOSINOPHILS % (AUTO) 2.5 % (0.0-8.0); HEMATOCRIT 34.4 % (36-48); LYMPHOCYTES % (AUTO) 10.3 % (21.0-51.0); MEAN CORPUSCULAR HEMOGLOBIN 30.1 pg (27.0-33.0); MEAN CORPUSCULAR HGB CONC 31.4 g/dL (32.0-36.0); MEAN CORPUSCULAR VOLUME 95.8 fL (79-99); NEUTROPHILS % (AUTO) 78.7 % (40.0-77.0); PLATELET COUNT (AUTO) 119 K/uL (130-400); RED BLOOD CELL COUNT(AUTO) 3.59 MIL/uL (4.00-5.50); RED CELL DISTRIBUTION WIDTH 18.8 % (11.0-15.5); WHITE BLOOD COUNT (AUTO) 9.9 K/uL (4.8-10.8)
[2022-06-13] MEDS ORDERED: VANCOMYCIN PROTOCOL PER PHARMACY IV SCH (13:00)
[2022-06-13] MEDS: ZOSYN 3.375GM +NS 50ML IVPB SCH (13:29)
[2022-06-13 13:50] LABS: ERYTHROCYTE SEDIMENTATION RATE 23 MM/HR (0-30)
[2022-06-13] MEDS ORDERED: DEXTROSE 50%-WATER 50 ML DISP.SYRIN IV PRN (19:00)
[2022-06-13] MEDS ORDERED: GLUCAGON 1MG KIT 1 MG ML IM PRN (19:00)
[2022-06-13] MEDS ORDERED: COMPOUND IV REFRIGERATED 1 EACH IVSOLN MISC PRN (19:30)
[2022-06-13] MEDS: INSULIN HUMULIN R 100 UNIT/ML 3ML SQ SCH (21:00)
[2022-06-13] MEDS: VANCOMYCIN 1.25 GM/250 ML BAG 250 ML IV SCH (21:56)
[2022-06-13] MEDS: HEPARIN 5,000 UNIT VIAL IV SCH (21:57)
[2022-06-14] MEDS: ZOSYN 3.375GM +NS 50ML IVPB SCH ×2 (01:26→11:44)
[2022-06-14 04:06] VITALS: BP 150/49
[2022-06-14] MEDS: INSULIN HUMULIN R 100 UNIT/ML 3ML SQ SCH ×4 (06:57→19:41)
[2022-06-14 07:55] LABS: BASOPHILS % (AUTO) 1.1 % (0.0-5.0); EOSINOPHILS % (AUTO) 3.9 % (0.0-8.0); HEMATOCRIT 33.6 % (36-48); LYMPHOCYTES % (AUTO) 8.6 % (21.0-51.0); MEAN CORPUSCULAR HEMOGLOBIN 29.6 pg (27.0-33.0); MEAN CORPUSCULAR VOLUME 95.7 fL (79-99); NEUTROPHILS % (AUTO) 77.6 % (40.0-77.0); PLATELET COUNT (AUTO) 108 K/uL (130-400); RED BLOOD CELL COUNT(AUTO) 3.51 MIL/uL (4.00-5.50); RED CELL DISTRIBUTION WIDTH 18.6 % (11.0-15.5); WHITE BLOOD COUNT (AUTO) 6.4 K/uL (4.8-10.8)
[2022-06-14 08:00] VITALS: BP 122/75
[2022-06-14 08:13] LABS: HEMOGLOBIN A1C 5.5 % (4.0-6.0)
[2022-06-14 08:22] LABS: ALBUMIN 2.7 g/dL (3.5-5.0); CREATININE 3.5 mg/dL (0.5-1.5); PHOSPHORUS 3.9 mg/dL (2.5-4.9); POTASSIUM 3.7 mmol/L (3.5-5.1); TOTAL PROTEIN, SERUM 5.9 g/dL (6.0-8.3)
[2022-06-14] MEDS: Vitamin B Complex/Vit C/Folic Acid PO SCH (08:26)
[2022-06-14] MEDS ORDERED: GLIP10TA9 PO (11:24)
[2022-06-14] MEDS ORDERED: ASPI-1443 PO (11:24)
[2022-06-14] MEDS ORDERED: DOXY100T2 PO (11:24)
[2022-06-14] MEDS ORDERED: GABA-529 PO (11:24)
[2022-06-14] MEDS ORDERED: ACETAMINOPHEN 325 MG TAB ONE (11:40)
[2022-06-14 11:59] VITALS: BP 117/52
[2022-06-14 16:00] VITALS: BP 161/76
[2022-06-14 19:57] VITALS: BP 126/57
[2022-06-14] MEDS: ATORVASTATIN 10 MG TABLET PO SCH (20:18)
[2022-06-14] MEDS: CARVEDILOL 6.25 MG TABLET PO SCH (20:18)
[2022-06-14] MEDS: APIXABAN 5 MG TABLET PO SCH (20:19)
[2022-06-14 23:28] VITALS: BP 144/51
[2022-06-15] VITALS (19 sets, daily range): BP systolic 102–168; BP diastolic 37–104
[2022-06-15] MEDS: ZOSYN 3.375GM +NS 50ML IVPB SCH ×2 (00:53→13:45)
[2022-06-15] MEDS: ACETAMINOPHEN 325 MG TAB PO PRN ×2 (00:57→12:17)
[2022-06-15] MEDS ORDERED: METH-811 PO (04:47)
[2022-06-15] MEDS: CYCLOBENZAPRINE HCL 10 MG TABLET PO PRN ×2 (05:03→22:20)
[2022-06-15] MEDS: INSULIN HUMULIN R 100 UNIT/ML 3ML SQ SCH ×4 (05:06→20:04)
[2022-06-15 07:16] LABS: HEPATITIS Bs ANTIGEN SCREEN P Negative (Negative)
[2022-06-15] MEDS: GABAPENTIN 100 MG CAPSULE PO SCH (08:30)
[2022-06-15] MEDS: APIXABAN 5 MG TABLET PO SCH ×2 (08:30→22:19)
[2022-06-15] MEDS: ASPIRIN 81 MG EC TAB PO SCH (08:30)
[2022-06-15] MEDS: Vitamin B Complex/Vit C/Folic Acid PO SCH (08:30)
[2022-06-15] MEDS: CARVEDILOL 6.25 MG TABLET PO SCH ×2 (08:30→21:00)
[2022-06-15] MEDS: AMIODARONE 200 MG TABLET PO SCH (08:30)
[2022-06-15 10:19] LABS: HEMATOCRIT 29.5 % (36-48); MEAN CORPUSCULAR HEMOGLOBIN 30.2 pg (27.0-33.0); MEAN CORPUSCULAR HGB CONC 31.5 g/dL (32.0-36.0); MEAN CORPUSCULAR VOLUME 95.8 fL (79-99); PLATELET COUNT (AUTO) 98 K/uL (130-400); RED BLOOD CELL COUNT(AUTO) 3.08 MIL/uL (4.00-5.50); RED CELL DISTRIBUTION WIDTH 18.5 % (11.0-15.5); WHITE BLOOD COUNT (AUTO) 5.8 K/uL (4.8-10.8)
[2022-06-15 10:32] LABS: CREATININE 4.3 mg/dL (0.5-1.5); PHOSPHORUS 4.5 mg/dL (2.5-4.9); POTASSIUM 3.7 mmol/L (3.5-5.1)
[2022-06-15 11:09] LABS: EOSINOPHILS % (MANUAL) 8 % (1-6); LYMPHOCYTES % (MANUAL) 5 % (22-44); MAN.DIFF COMMENT-IMPRESSION MANUAL DIFFERENTIAL; MONOCYTES % (MANUAL) 5 % (2-9); PLATELET MORPHOLOGY COMMENT SLIGHTLY DECREASED; SEGMENTED NEUTROPHILS % 82 % (40-70)
[2022-06-15] MEDS: HEPARIN 5,000 UNIT VIAL IV SCH (16:00)
[2022-06-15] MEDS: VANCOMYCIN 1.25 GM/250 ML BAG 250 ML IV SCH (22:20)
[2022-06-15] MEDS: ATORVASTATIN 10 MG TABLET PO SCH (22:20)
[2022-06-15] MEDS: TRAMADOL HCL 50 MG TABLET PO PRN (22:20)
[2022-06-16] MEDS: ZOSYN 3.375GM +NS 50ML IVPB SCH ×2 (01:56→11:58)
[2022-06-16 04:08] VITALS: BP 187/81
[2022-06-16] MEDS: INSULIN HUMULIN R 100 UNIT/ML 3ML SQ SCH ×4 (06:09→21:00)
[2022-06-16 08:00] VITALS: BP 128/64
[2022-06-16] MEDS: GABAPENTIN 100 MG CAPSULE PO SCH (09:02)
[2022-06-16] MEDS: CYCLOBENZAPRINE HCL 10 MG TABLET PO PRN ×2 (09:02→21:42)
[2022-06-16] MEDS: Vitamin B Complex/Vit C/Folic Acid PO SCH (09:02)
[2022-06-16] MEDS: ASPIRIN 81 MG EC TAB PO SCH (09:02)
[2022-06-16] MEDS: AMIODARONE 200 MG TABLET PO SCH (09:03)
[2022-06-16] MEDS: APIXABAN 5 MG TABLET PO SCH ×2 (09:03→21:42)
[2022-06-16] MEDS: CARVEDILOL 6.25 MG TABLET PO SCH ×2 (09:04→21:00)
[2022-06-16 11:00] VITALS: BP 103/47
[2022-06-16 16:00] VITALS: BP 143/72
[2022-06-16] MEDS ORDERED: ROPI0.257 PO (19:22)
[2022-06-16 20:37] VITALS: BP 153/59
[2022-06-16] MEDS: ATORVASTATIN 10 MG TABLET PO SCH (21:42)
[2022-06-16 23:24] VITALS: BP 116/49
[2022-06-17] MEDS: ZOSYN 3.375GM +NS 50ML IVPB SCH ×2 (01:45→12:30)
[2022-06-17 03:50] VITALS: BP 159/44
[2022-06-17] MEDS: INSULIN HUMULIN R 100 UNIT/ML 3ML SQ SCH ×4 (07:30→20:55)
[2022-06-17 08:00] VITALS: BP 128/58
[2022-06-17] MEDS: Vitamin B Complex/Vit C/Folic Acid PO SCH (08:54)
[2022-06-17] MEDS: AMIODARONE 200 MG TABLET PO SCH (08:55)
[2022-06-17] MEDS: APIXABAN 5 MG TABLET PO SCH ×2 (08:55→20:53)
[2022-06-17] MEDS: GABAPENTIN 100 MG CAPSULE PO SCH (08:55)
[2022-06-17] MEDS: ASPIRIN 81 MG EC TAB PO SCH (08:55)
[2022-06-17] MEDS: CARVEDILOL 6.25 MG TABLET PO SCH ×2 (08:55→20:54)
[2022-06-17 09:01] LABS: ALBUMIN 2.6 g/dL (3.5-5.0); CREATININE 4.7 mg/dL (0.5-1.5); POTASSIUM 3.8 mmol/L (3.5-5.1); TOTAL PROTEIN, SERUM 6.1 g/dL (6.0-8.3)
[2022-06-17 10:36] LABS: MEAN CORPUSCULAR HEMOGLOBIN 29.7 pg (27.0-33.0); MEAN CORPUSCULAR HGB CONC 30.6 g/dL (32.0-36.0); MEAN CORPUSCULAR VOLUME 97.2 fL (79-99); RED BLOOD CELL COUNT(AUTO) 3.6 MIL/uL (4.00-5.50); RED CELL DISTRIBUTION WIDTH 18.7 % (11.0-15.5); WHITE BLOOD COUNT (AUTO) 7.3 K/uL (4.8-10.8)
[2022-06-17 11:22] VITALS: BP 97/72
[2022-06-17 15:25] VITALS: BP 131/58
[2022-06-17] MEDS ORDERED: HONEY 1 APPL/ML TUBE TP SCH (18:00)
[2022-06-17 20:01] VITALS: BP 132/65
[2022-06-17] MEDS: ATORVASTATIN 10 MG TABLET PO SCH (20:52)
[2022-06-17] MEDS: VANCOMYCIN 1.25 GM/250 ML BAG 250 ML IV SCH (20:53)
[2022-06-17] MEDS: CYCLOBENZAPRINE HCL 10 MG TABLET PO PRN (21:44)
[2022-06-17 23:39] VITALS: BP 109/59
[2022-06-18] VITALS (21 sets, daily range): BP systolic 103–161; BP diastolic 52–85
[2022-06-18] MEDS: ZOSYN 3.375GM +NS 50ML IVPB SCH ×2 (01:00→13:28)
[2022-06-18] MEDS: INSULIN HUMULIN R 100 UNIT/ML 3ML SQ SCH ×4 (05:43→21:00)
[2022-06-18] MEDS: ASPIRIN 81 MG EC TAB PO SCH (09:00)
[2022-06-18] MEDS: APIXABAN 5 MG TABLET PO SCH ×2 (09:00→21:09)
[2022-06-18] MEDS: AMIODARONE 200 MG TABLET PO SCH (09:00)
[2022-06-18] MEDS: Vitamin B Complex/Vit C/Folic Acid PO SCH (09:00)
[2022-06-18] MEDS: GABAPENTIN 100 MG CAPSULE PO SCH (09:00)
[2022-06-18] MEDS: CARVEDILOL 6.25 MG TABLET PO SCH ×2 (09:00→21:10)
[2022-06-18] MEDS: TRAMADOL HCL 50 MG TABLET PO PRN (10:55)
[2022-06-18 15:46] LABS: HEMATOCRIT 44.9 % (36-48); MEAN CORPUSCULAR HGB CONC 31.2 g/dL (32.0-36.0); MEAN CORPUSCULAR VOLUME 96.4 fL (79-99); PLATELET COUNT (AUTO) 56 K/uL (130-400); RED BLOOD CELL COUNT(AUTO) 4.66 MIL/uL (4.00-5.50); RED CELL DISTRIBUTION WIDTH 18.8 % (11.0-15.5); WHITE BLOOD COUNT (AUTO) 3.9 K/uL (4.8-10.8)
[2022-06-18 15:59] LABS: PHOSPHORUS 5.2 mg/dL (2.5-4.9); POTASSIUM 3.5 mmol/L (3.5-5.1)
[2022-06-18 16:06] LABS: EOSINOPHILS % (MANUAL) 5 % (1-6); LYMPHOCYTES % (MANUAL) 8 % (22-44); MAN.DIFF COMMENT-IMPRESSION MANUAL DIFFERENTIAL; MONOCYTES % (MANUAL) 8 % (2-9); REACTIVE LYMPHOCYTES 1 % (0-0); SEGMENTED NEUTROPHILS % 78 % (40-70)
[2022-06-18] MEDS: ACETAMINOPHEN 325 MG TAB PO PRN (17:55)
[2022-06-18] MEDS: HEPARIN 5,000 UNIT VIAL IV SCH (17:57)
[2022-06-18] MEDS ORDERED: VANCOMYCIN 750MG VIAL IVPB SCH (19:20)
[2022-06-18] MEDS ORDERED: 0.9% NACL 250ML 250 ML IV SCH (19:30)
[2022-06-18] MEDS: ATORVASTATIN 10 MG TABLET PO SCH (21:09)
[2022-06-18] MEDS: CYCLOBENZAPRINE HCL 10 MG TABLET PO PRN (21:35)
[2022-06-19] VITALS: BP 113/70
[2022-06-19] MEDS: ZOSYN 3.375GM +NS 50ML IVPB SCH ×2 (00:15→16:03)
[2022-06-19 04:00] VITALS: BP 149/54
[2022-06-19] MEDS: INSULIN HUMULIN R 100 UNIT/ML 3ML SQ SCH ×3 (06:15→20:43)
[2022-06-19 08:00] VITALS: BP 138/77
[2022-06-19] MEDS: AMIODARONE 200 MG TABLET PO SCH (10:24)
[2022-06-19] MEDS: Vitamin B Complex/Vit C/Folic Acid PO SCH (10:24)
[2022-06-19] MEDS: GABAPENTIN 100 MG CAPSULE PO SCH (10:25)
[2022-06-19] MEDS: APIXABAN 5 MG TABLET PO SCH ×2 (10:25→21:28)
[2022-06-19] MEDS: CARVEDILOL 6.25 MG TABLET PO SCH ×3 (10:25→21:28)
[2022-06-19] MEDS: ASPIRIN 81 MG EC TAB PO SCH (10:26)
[2022-06-19 12:00] VITALS: BP 132/42
[2022-06-19 16:00] VITALS: BP 99/74
[2022-06-19 19:00] VITALS: BP 151/68
[2022-06-19] MEDS: ATORVASTATIN 10 MG TABLET PO SCH (21:27)
[2022-06-19] MEDS: CYCLOBENZAPRINE HCL 10 MG TABLET PO PRN (21:33)
[2022-06-19] MEDS: TRAMADOL HCL 50 MG TABLET PO PRN (21:34)
[2022-06-20] VITALS (20 sets, daily range): BP systolic 94–180; BP diastolic 47–104
[2022-06-20] MEDS: ZOSYN 3.375GM +NS 50ML IVPB SCH ×2 (00:54→13:45)
[2022-06-20] MEDS: INSULIN HUMULIN R 100 UNIT/ML 3ML SQ SCH ×4 (06:36→20:57)
[2022-06-20] MEDS: ASPIRIN 81 MG EC TAB PO SCH (09:00)
[2022-06-20] MEDS: CARVEDILOL 6.25 MG TABLET PO SCH ×2 (09:00→20:57)
[2022-06-20] MEDS: AMIODARONE 200 MG TABLET PO SCH (09:00)
[2022-06-20 12:45] LABS: BASOPHILS % (AUTO) 0.7 % (0.0-5.0); EOSINOPHILS % (AUTO) 3.7 % (0.0-8.0); HEMATOCRIT 34.6 % (36-48); LYMPHOCYTES % (AUTO) 9.8 % (21.0-51.0); MEAN CORPUSCULAR HEMOGLOBIN 30.5 pg (27.0-33.0); MEAN CORPUSCULAR HGB CONC 31.5 g/dL (32.0-36.0); MEAN CORPUSCULAR VOLUME 96.9 fL (79-99); MONOCYTES % (AUTO) 4.7 % (3.0-13.0); NEUTROPHILS % (AUTO) 80.2 % (40.0-77.0); PLATELET COUNT (AUTO) 104 K/uL (130-400); RED BLOOD CELL COUNT(AUTO) 3.57 MIL/uL (4.00-5.50); RED CELL DISTRIBUTION WIDTH 18.4 % (11.0-15.5); WHITE BLOOD COUNT (AUTO) 10.1 K/uL (4.8-10.8)
[2022-06-20 13:03] LABS: CREATININE 3.1 mg/dL (0.5-1.5); PHOSPHORUS 2.9 mg/dL (2.5-4.9); POTASSIUM 3.3 mmol/L (3.5-5.1)
[2022-06-20] MEDS: ACETAMINOPHEN 325 MG TAB PO PRN (13:45)
[2022-06-20] MEDS: LINEZOLID 600 MG/ISO-OSM 300 ML IV SCH (17:31)
[2022-06-20] MEDS: APIXABAN 5 MG TABLET PO SCH ×2 (17:33→21:00)
[2022-06-20] MEDS: Vitamin B Complex/Vit C/Folic Acid PO SCH (17:33)
[2022-06-20] MEDS: GABAPENTIN 100 MG CAPSULE PO SCH (17:34)
[2022-06-20] MEDS: ATORVASTATIN 10 MG TABLET PO SCH (20:56)
[2022-06-21 00:08] VITALS: BP 151/46
[2022-06-21] MEDS: ZOSYN 3.375GM +NS 50ML IVPB SCH ×2 (01:07→12:11)
[2022-06-21 03:51] VITALS: BP 128/72
[2022-06-21] MEDS: LINEZOLID 600 MG/ISO-OSM 300 ML IV SCH (05:19)
[2022-06-21] MEDS: INSULIN HUMULIN R 100 UNIT/ML 3ML SQ SCH ×4 (06:48→20:56)
[2022-06-21 08:00] VITALS: BP 104/48
[2022-06-21] MEDS: Vitamin B Complex/Vit C/Folic Acid PO SCH (08:49)
[2022-06-21] MEDS: GABAPENTIN 100 MG CAPSULE PO SCH (08:49)
[2022-06-21] MEDS: CARVEDILOL 6.25 MG TABLET PO SCH ×2 (08:49→20:55)
[2022-06-21] MEDS: AMIODARONE 200 MG TABLET PO SCH (08:50)
[2022-06-21] MEDS: APIXABAN 5 MG TABLET PO SCH (08:50)
[2022-06-21] MEDS: ASPIRIN 81 MG EC TAB PO SCH (08:50)
[2022-06-21] MEDS: ACETAMINOPHEN 325 MG TAB PO PRN ×2 (08:57→20:57)
[2022-06-21 12:00] VITALS: BP 147/45
[2022-06-21] MEDS ORDERED: PHARMACY COMMUNICATION MISC SCH (15:30)
[2022-06-21 16:00] VITALS: BP 141/32
[2022-06-21] MEDS: [UNRECOGNIZED DRUG - OTHER] IV SCH (17:20)
[2022-06-21] MEDS: DAPTOMYCIN IV SCH (17:20)
[2022-06-21 20:00] VITALS: BP 98/25
[2022-06-21] MEDS: ATORVASTATIN 10 MG TABLET PO SCH (20:56)
[2022-06-22] VITALS (20 sets, daily range): BP systolic 114–163; BP diastolic 26–98
[2022-06-22] MEDS: ZOSYN 3.375GM +NS 50ML IVPB SCH ×2 (00:30→14:48)
[2022-06-22] MEDS: INSULIN HUMULIN R 100 UNIT/ML 3ML SQ SCH ×4 (05:49→19:50)
[2022-06-22] MEDS: AMIODARONE 200 MG TABLET PO SCH (09:00)
[2022-06-22] MEDS: ASPIRIN 81 MG EC TAB PO SCH (09:00)
[2022-06-22] MEDS: GABAPENTIN 100 MG CAPSULE PO SCH (09:00)
[2022-06-22] MEDS: CARVEDILOL 6.25 MG TABLET PO SCH ×2 (09:00→19:51)
[2022-06-22] MEDS: Vitamin B Complex/Vit C/Folic Acid PO SCH (09:00)
[2022-06-22 10:16] LABS: BASOPHILS % (AUTO) 1.2 % (0.0-5.0); EOSINOPHILS % (AUTO) 6.3 % (0.0-8.0); HEMATOCRIT 37.3 % (36-48); LYMPHOCYTES % (AUTO) 15.4 % (21.0-51.0); MEAN CORPUSCULAR HEMOGLOBIN 29.6 pg (27.0-33.0); MEAN CORPUSCULAR HGB CONC 30.3 g/dL (32.0-36.0); MEAN CORPUSCULAR VOLUME 97.6 fL (79-99); MONOCYTES % (AUTO) 8.5 % (3.0-13.0); NEUTROPHILS % (AUTO) 67.8 % (40.0-77.0); PLATELET COUNT (AUTO) 91 K/uL (130-400); RED BLOOD CELL COUNT(AUTO) 3.82 MIL/uL (4.00-5.50); RED CELL DISTRIBUTION WIDTH 18.1 % (11.0-15.5)
[2022-06-22 10:37] LABS: ALBUMIN 2.3 g/dL (3.5-5.0); PHOSPHORUS 4.6 mg/dL (2.5-4.9); POTASSIUM 3.3 mmol/L (3.5-5.1); TOTAL PROTEIN, SERUM 5.8 g/dL (6.0-8.3)
[2022-06-22] MEDS: CYCLOBENZAPRINE HCL 10 MG TABLET PO PRN (14:52)
[2022-06-22] MEDS: ACETAMINOPHEN 325 MG TAB PO PRN (18:04)
[2022-06-22] MEDS: ATORVASTATIN 10 MG TABLET PO SCH (19:51)
[2022-06-22] MEDS: ROPINIROLE HCL 0.25 MG TABLET PO PRN (21:06)
[2022-06-23] VITALS (7 sets, daily range): BP systolic 114–145; BP diastolic 27–62
[2022-06-23] MEDS: ACETAMINOPHEN 325 MG TAB PO PRN (01:16)
[2022-06-23] MEDS: ZOSYN 3.375GM +NS 50ML IVPB SCH ×2 (01:16→13:10)
[2022-06-23] MEDS: CYCLOBENZAPRINE HCL 10 MG TABLET PO PRN ×2 (01:25→14:26)
[2022-06-23] MEDS: INSULIN HUMULIN R 100 UNIT/ML 3ML SQ SCH ×4 (06:08→20:40)
[2022-06-23] MEDS: Vitamin B Complex/Vit C/Folic Acid PO SCH (08:32)
[2022-06-23] MEDS: ASPIRIN 81 MG EC TAB PO SCH (08:32)
[2022-06-23] MEDS: GABAPENTIN 100 MG CAPSULE PO SCH (08:32)
[2022-06-23] MEDS: AMIODARONE 200 MG TABLET PO SCH (08:32)
[2022-06-23] MEDS: CARVEDILOL 6.25 MG TABLET PO SCH ×2 (09:00→20:41)
[2022-06-23] MEDS: [UNRECOGNIZED DRUG - OTHER] IV SCH (17:22)
[2022-06-23] MEDS: DAPTOMYCIN IV SCH (17:22)
[2022-06-23] MEDS: ATORVASTATIN 10 MG TABLET PO SCH (20:40)
[2022-06-23] MEDS: ROPINIROLE HCL 0.25 MG TABLET PO PRN (20:44)
[2022-06-24] VITALS (14 sets, daily range): BP systolic 85–135; BP diastolic 29–76
[2022-06-24] MEDS: ZOSYN 3.375GM +NS 50ML IVPB SCH ×2 (00:54→12:13)
[2022-06-24] MEDS: INSULIN HUMULIN R 100 UNIT/ML 3ML SQ SCH ×4 (06:06→20:27)
[2022-06-24] MEDS: Vitamin B Complex/Vit C/Folic Acid PO SCH (08:23)
[2022-06-24] MEDS: ASPIRIN 81 MG EC TAB PO SCH (08:23)
[2022-06-24] MEDS: AMIODARONE 200 MG TABLET PO SCH (08:23)
[2022-06-24] MEDS: GABAPENTIN 100 MG CAPSULE PO SCH (08:23)
[2022-06-24] MEDS: CARVEDILOL 6.25 MG TABLET PO SCH ×2 (08:24→21:35)
[2022-06-24] MEDS ORDERED: LIDOCAINE HCL 400MG/20ML VIAL ONE (10:14)
[2022-06-24] MEDS ORDERED: HEPARIN 1,000 UNIT VIAL ONE (10:15)
[2022-06-24] MEDS: ACETAMINOPHEN 325 MG TAB PO PRN (10:59)
[2022-06-24] MEDS: ATORVASTATIN 10 MG TABLET PO SCH (21:31)
[2022-06-25] VITALS (18 sets, daily range): BP systolic 93–168; BP diastolic 41–88
[2022-06-25] MEDS: ZOSYN 3.375GM +NS 50ML IVPB SCH ×2 (00:43→13:30)
[2022-06-25] MEDS: INSULIN HUMULIN R 100 UNIT/ML 3ML SQ SCH ×2 (06:30→11:30)
[2022-06-25] MEDS: CARVEDILOL 6.25 MG TABLET PO SCH (09:00)
[2022-06-25] MEDS: AMIODARONE 200 MG TABLET PO SCH (09:00)
[2022-06-25 10:17] LABS: BASOPHILS % (AUTO) 1.9 % (0.0-5.0); EOSINOPHILS % (AUTO) 7.8 % (0.0-8.0); LYMPHOCYTES % (AUTO) 14.2 % (21.0-51.0); MEAN CORPUSCULAR HEMOGLOBIN 30.3 pg (27.0-33.0); MEAN CORPUSCULAR HGB CONC 31.2 g/dL (32.0-36.0); MONOCYTES % (AUTO) 9.5 % (3.0-13.0); PLATELET COUNT (AUTO) 83 K/uL (130-400); RED BLOOD CELL COUNT(AUTO) 4.33 MIL/uL (4.00-5.50); RED CELL DISTRIBUTION WIDTH 17.8 % (11.0-15.5); WHITE BLOOD COUNT (AUTO) 4.6 K/uL (4.8-10.8)
[2022-06-25 10:33] LABS: CREATININE 6.1 mg/dL (0.5-1.5); PHOSPHORUS 6.7 mg/dL (2.5-4.9); POTASSIUM 3.4 mmol/L (3.5-5.1)
[2022-06-25] MEDS: HEPARIN 5,000 UNIT VIAL IV SCH (12:29)
[2022-06-25] MEDS: GABAPENTIN 100 MG CAPSULE PO SCH (13:30)
[2022-06-25] MEDS: ASPIRIN 81 MG EC TAB PO SCH (13:30)
[2022-06-25] MEDS: Vitamin B Complex/Vit C/Folic Acid PO SCH (13:30)
[2022-06-25] MEDS: CYCLOBENZAPRINE HCL 10 MG TABLET PO PRN (16:14)
== END 2022-06-25 16:00 | DRG 564 ==
LOC: EDH 09:39 → EDHIP 12:32 → 3AH 14:52
PROVIDERS: ADMIT Internal Medicine Nephrology; ATTEND Internal Medicine Nephrology
PROC: 5A1D70Z Performance of Urinary Filtration, Intermittent, Less than 6 Hours Per Day (ICD-10-PCS; 2022-06-13)
PROC: 5A1D70Z Performance of Urinary Filtration, Intermittent, Less than 6 Hours Per Day (ICD-10-PCS; 2022-06-15)
PROC: 5A1D70Z Performance of Urinary Filtration, Intermittent, Less than 6 Hours Per Day (ICD-10-PCS; 2022-06-18)
PROC: 5A1D70Z Performance of Urinary Filtration, Intermittent, Less than 6 Hours Per Day (ICD-10-PCS; 2022-06-20)
PROC: 5A1D70Z Performance of Urinary Filtration, Intermittent, Less than 6 Hours Per Day (ICD-10-PCS; 2022-06-22)
PROC: 02H633Z Insertion of Infusion Device into Right Atrium, Percutaneous Approach (ICD-10-PCS; principal; 2022-06-24)
PROC: B5181ZA Fluoroscopy of Superior Vena Cava using Low Osmolar Contrast, Guidance (ICD-10-PCS; 2022-06-24)
PROC: 05PY33Z Removal of Infusion Device from Upper Vein, Percutaneous Approach (ICD-10-PCS; 2022-06-24)
PROC: 5A1D70Z Performance of Urinary Filtration, Intermittent, Less than 6 Hours Per Day (ICD-10-PCS; 2022-06-25)
DX: T87.43 Infection of amputation stump, right lower extremity (principal); G06.2 Extradural and subdural abscess, unspecified; N18.6 End stage renal disease; M46.22 Osteomyelitis of vertebra, cervical region; I12.0 Hypertensive chronic kidney disease with stage 5 chronic kidney disease or end stage renal disease; L97.929 Non-pressure chronic ulcer of unspecified part of left lower leg with unspecified severity; Z16.21 Resistance to vancomycin; E11.69 Type 2 diabetes mellitus with other specified complication; D64.9 Anemia, unspecified; E11.22 Type 2 diabetes mellitus with diabetic chronic kidney disease; E11.51 Type 2 diabetes mellitus with diabetic peripheral angiopathy without gangrene; E78.5 Hyperlipidemia, unspecified; I25.10 Atherosclerotic heart disease of native coronary artery without angina pectoris; Y83.5 Amputation of limb(s) as the cause of abnormal reaction of the patient, or of later complication, without mention of misadventure at the time of the procedure; D69.6 Thrombocytopenia, unspecified; Y83.8 Other surgical procedures as the cause of abnormal reaction of the patient, or of later complication, without mention of misadventure at the time of the procedure; E66.09 Other obesity due to excess calories; G89.29 Other chronic pain; Z83.3 Family history of diabetes mellitus; Z74.01 Bed confinement status; Z89.511 Acquired absence of right leg below knee; Z95.1 Presence of aortocoronary bypass graft; Z98.41 Cataract extraction status, right eye; Z98.42 Cataract extraction status, left eye; Z99.2 Dependence on renal dialysis; Z68.29 Body mass index [BMI] 29.0-29.9, adult
CPT/HCPCS: 36415; 36581; 72125; 72128; 72141; 73721; 77001; 80048; 80053; 80202; 82948; 83036; 83735; 84100; 85025; 85027; 85651; 86704; 86706; 87040; 87077; 87186; 87340; 90935; 99291; C1750; C1769; G0378; J0878; J1644; J1815; J2020; J2543; J3490

== ENCOUNTER → 2022-08-26 | Outpatient (CLI) | payer MEDICARE ==
[~2022-08-26] MED LIST changes: -CHOL100046 PO; +CHOL500051 PO; -FISH1CAP63 PO; +FOLI1TAB85 PO; +GABA-529 PO; -NITR0.4T50 SL; +ROPI0.257 PO; -SERT50TA PO; -renavite PO
== END | disposition home or self-care (01) ==
LOC: WHH 09:33
PROVIDERS: ATTEND Nurse Practitioner Family
DX: T87.81 Dehiscence of amputation stump (principal); S81.801D Unspecified open wound, right lower leg, subsequent encounter; S81.802A Unspecified open wound, left lower leg, initial encounter; E11.65 Type 2 diabetes mellitus with hyperglycemia; E11.22 Type 2 diabetes mellitus with diabetic chronic kidney disease; I13.2 Hypertensive heart and chronic kidney disease with heart failure and with stage 5 chronic kidney disease, or end stage renal disease; I50.22 Chronic systolic (congestive) heart failure; N18.6 End stage renal disease; I25.10 Atherosclerotic heart disease of native coronary artery without angina pectoris; E11.51 Type 2 diabetes mellitus with diabetic peripheral angiopathy without gangrene; I48.0 Paroxysmal atrial fibrillation; E78.5 Hyperlipidemia, unspecified; I25.2 Old myocardial infarction; E66.01 Morbid (severe) obesity due to excess calories; Z68.30 Body mass index [BMI] 30.0-30.9, adult; Z79.82 Long term (current) use of aspirin; Z79.01 Long term (current) use of anticoagulants; Z79.899 Other long term (current) drug therapy; Z87.891 Personal history of nicotine dependence; Z90.49 Acquired absence of other specified parts of digestive tract; Z99.2 Dependence on renal dialysis; Z89.512 Acquired absence of left leg below knee; Z79.84 Long term (current) use of oral hypoglycemic drugs; Z95.1 Presence of aortocoronary bypass graft; X58.XXXD Exposure to other specified factors, subsequent encounter; Y83.5 Amputation of limb(s) as the cause of abnormal reaction of the patient, or of later complication, without mention of misadventure at the time of the procedure; X58.XXXA Exposure to other specified factors, initial encounter; Y93.89 Activity, other specified; Y92.89 Other specified places as the place of occurrence of the external cause; Y99.8 Other external cause status
CPT/HCPCS: 11042

== ENCOUNTER 2022-11-21 15:43 | Emergency (ER) | payer MEDICARE ==
[~2022-11-21] VITALS: Ht 160 cm; Wt 68.9 kg
[~2022-11-21 15:43] MED LIST changes: +ASPI-1114 PO; +GLIP10TA9 PO; +LOPE2CAP PO; +NITR0.4T50 SL; +PANT20TA18 PO; +ROPI0.2535 PO; -ROPI0.257 PO
[2022-11-21 16:29] LABS: BASOPHILS # (AUTO) 0.05 K/uL (0.00-0.20); EOSINOPHILS # (AUTO) 0.05 K/uL (0.00-0.70); HEMATOCRIT 37.5 % (36-48); IMMATURE GRANULOCYTE ABSOLUTE 0.02 K/uL (0-1); LYMPHOCYTES # (AUTO) 0.5 K/uL (1.0-4.8); LYMPHOCYTES % (AUTO) 9.3 % (21.0-51.0); MEAN CORPUSCULAR HEMOGLOBIN 30.8 pg (27.0-33.0); MEAN CORPUSCULAR HGB CONC 30.7 g/dL (32.0-36.0); MEAN CORPUSCULAR VOLUME 100.5 fL (79-99); MONOCYTES # (AUTO) 0.5 K/uL (0.1-1.0); MONOCYTES % (AUTO) 10.5 % (3.0-13.0); NEUTROPHILS % (AUTO) 77.8 % (40.0-77.0); PLATELET COUNT (AUTO) 89 K/uL (130-400); RED BLOOD CELL COUNT(AUTO) 3.73 MIL/uL (4.00-5.50); RED CELL DISTRIBUTION WIDTH 16.6 % (11.0-15.5); WHITE BLOOD COUNT (AUTO) 5.2 K/uL (4.8-10.8)
[2022-11-21 16:32] LABS: CREATININE 1.8 mg/dL (0.5-1.5); POTASSIUM 3.6 mmol/L (3.5-5.1)
[2022-11-21 16:33] LABS: INR 1.02 (0.85-1.15); PROTHROMBIN TIME 11.8 SEC (9.6-11.6)
[2022-11-21 16:37] LABS: BILIRUBIN,TOTAL 0.6 mg/dL (0.2-1.0); TOTAL PROTEIN, SERUM 5.7 g/dL (6.0-8.3)
[2022-11-21 17:05] LABS: B-TYPE NATRIURETIC PEPTIDE 2800 pg/mL (0-100)
[2022-11-21 21:00] VITALS: BP 115/78; PULSE 79; RESP 15; O2SAT 100
== END 2022-11-21 21:05 | disposition home or self-care (01) ==
LOC: EDH 15:43
DX: I12.0 Hypertensive chronic kidney disease with stage 5 chronic kidney disease or end stage renal disease (principal); E11.22 Type 2 diabetes mellitus with diabetic chronic kidney disease; N18.6 End stage renal disease; Z99.2 Dependence on renal dialysis; E78.00 Pure hypercholesterolemia, unspecified; Z79.01 Long term (current) use of anticoagulants; Z79.82 Long term (current) use of aspirin; Z79.84 Long term (current) use of oral hypoglycemic drugs; Z79.899 Other long term (current) drug therapy; Z88.1 Allergy status to other antibiotic agents; Z88.2 Allergy status to sulfonamides; Z88.5 Allergy status to narcotic agent; Z89.511 Acquired absence of right leg below knee; Z95.1 Presence of aortocoronary bypass graft
CPT/HCPCS: 36415; 71045; 80053; 83880; 84484; 85025; 85610; 93005